=== PATIENT | female | born 1980 | race Caucasian/White ===

== ENCOUNTER → 2016-10-27 | Outpatient (CLI) | payer MEDICARE, OTHER ==
--- NOTE | 2016-10-27 12:29 | RAD ---
PROCEDURE MR of the right knee HISTORY Chronic pain and the weakness. TECHNIQUE Standard noncontrast images are obtained. COMPARISON None FINDINGS No evidence of medial meniscal tear or lateral meniscal tear. Note there is motion degradation on some of the sequences. Anterior and posterior cruciate ligaments are intact. Medial collateral ligament is intact. Iliotibial band, fibular collateral ligament, and biceps femoris tendon are intact. The extensor mechanism appears intact. Small joint effusion. Mild chondromalacia and degenerative arthrosis at the medial joint compartment and at the lateral joint compartment. Moderate to severe patellofemoral joint chondromalacia. There is a bone lesion within the tibial metaphysis with serpiginous margins, compatible with a focus of osteonecrosis, measures 5.5 cm longitudinal. No acute edema. No evidence of acute macro fracture. No significant Rock cyst or acute soft tissue edema. IMPRESSION 1. Primary osteoarthritis, greatest at the patellofemoral joint. 2. Bone lesion within the proximal tibia, most compatible with a zone of osteonecrosis. Electronically signed by: Brennen Romero MD (Oct 27, 2016 12:27:39)
== END | disposition home or self-care (01) ==
LOC: MRI 07:22
PROVIDERS: ATTEND Orthopaedic Surgery
DX: M17.11 Unilateral primary osteoarthritis, right knee (principal)
CPT/HCPCS: 73721

== ENCOUNTER 2017-02-02 18:29 | Emergency (ER) | payer MEDICARE, OTHER ==
[~2017-02-02] VITALS: Ht 176.5 cm; Wt 96.6 kg
--- NOTE | 2017-02-02 18:58 | PHYS DOC ---
Past Medical History Past Medical History: Asthma, Hypertension, Seizure Past Surgical History: No Surgical History Alcohol Use: None Drug Use: None Adult General Chief Complaint Chief Complaint: ABDOMINAL PAIN HPI HPI Patient is a 36 year old female presenting to the emergency department for evaluation of diffuse abdominal pain nausea and vomiting that started 2-3 days ago and has persisted. She says that the pain is all over and she denies any fevers chills dysuria hematuria vaginal burning vaginal discharge diarrhea or constipation with her symptoms. She denies any prior abdominal surgeries. Review of Systems Review of Systems Constitutional: Denies fever or chills [] Eyes: Denies change in visual acuity, redness, or eye pain [] HENT: Denies nasal congestion or sore throat [] Respiratory: Denies cough or shortness of breath [] Cardiovascular: No additional information not addressed in HPI [] GI: + abdominal pain, nausea, vomiting. No bloody stools or diarrhea [] : Denies dysuria or hematuria [] Musculoskeletal: Denies back pain or joint pain [] Integument: Denies rash or skin lesions [] Neurologic: Denies headache, focal weakness or sensory changes [] Current Medications Current Medications Current Medications Medications (Trade) Dose Ordered Sig/Bernice Start Time Stop Time Status Last Admin Dose Admin Ceftriaxone Sodium 1 gm/ Sodium Chloride 50 ml @ 100 mls/hr Q24H 02/03/17 20:00 02/03/17 20:00 DC Ceftriaxone Sodium 50 ml @ 100 mls/hr 1X ONCE 02/02/17 19:45 02/02/17 20:14 DC 02/02/17 19:58 100 MLS/HR Info (Do NOT chart on this entry -- for MONITORING) 1 each PRN DAILY PRN 02/02/17 19:15 02/02/17 21:10 DC Iohexol (Omnipaque 300 Mg/ml) 75 ml 1X ONCE 02/02/17 19:15 02/02/17 19:16 DC Morphine Sulfate 5 mg 1X ONCE 02/02/17 19:00 02/02/17 19:04 DC 02/02/17 19:08 5 MG Ondansetron HCl (Zofran) 8 mg 1X ONCE 02/02/17 19:00 02/02/17 19:04 DC 02/02/17 19:08 8 MG Sodium Chloride 1,000 ml @ 1,000 mls/hr 1X ONCE 02/02/17 19:00 02/02/17 19:59 DC 02/02/17 19:08 1,000 MLS/HR Allergies Allergies Allergies Coded Allergies Type Severity Reaction Last Updated Verified Penicillins Allergy Intermediate 02/02/17 Yes Physical Exam Physical Exam Constitutional: Well developed, well nourished, no acute distress, non-toxic appearance. [] HENT: Normocephalic, atraumatic, bilateral external ears normal, oropharynx moist, no oral exudates, nose normal. [] Eyes: PERRLA, EOMI, conjunctiva normal, no discharge. [] Neck: Normal range of motion, no tenderness, supple, no stridor. [] Cardiovascular:Heart rate regular rhythm, no murmur [] Lungs & Thorax: Bilateral breath sounds clear to auscultation [] Abdomen: Bowel sounds normal, soft, diffuse abdominal tenderness, no rebound or guarding, no masses, no pulsatile masses. [] Skin: Warm, dry, no erythema, no rash. [] Back: No tenderness, no CVA tenderness. [] Extremities: No tenderness, no cyanosis, no clubbing, ROM intact, no edema. [] Neurologic: Alert and oriented X 3, normal motor function, normal sensory function, no focal deficits noted. [] Current Patient Data Vital Signs Vital Signs Date Time Temp Pulse Resp B/P (MAP) Pulse Ox O2 Delivery O2 Flow Rate FiO2 02/02/17 20:00 86 16 156/85 (108) 96 Room Air 02/02/17 18:35 99.0 99.0 Lab Values Laboratory Tests Test 02/02/17 18:03 02/02/17 18:50 02/02/17 19:04 POC Urine HCG, Qualitative Hcg negative (Negative) Urine Collection Type Unknown Urine Color Yellow Urine Clarity Cloudy Urine pH 8.0 Urine Specific [place] 1.020 Urine Protein Negative mg/dL (NEG-TRACE) Urine Glucose (UA) Negative mg/dL (NEG) Urine Ketones (Stick) Trace mg/dL (NEG) Urine Blood Large (NEG) Urine Nitrite Negative (NEG) Urine Bilirubin Negative (NEG) Urine Urobilinogen Dipstick 1.0 mg/dL (0.2 mg/dL) Urine Leukocyte Esterase Large (NEG) Urine RBC Occ /HPF (0-2) Urine WBC Tntc /HPF (0-4) Urine Squamous Epithelial Cells Mod /LPF Urine Bacteria Many /HPF (0-FEW) Urine Mucus Mod /LPF Urine Opiates Screen Neg (NEG) Urine Methadone Screen Neg (NEG) Urine Barbiturates Pos (NEG) Urine Phencyclidine Screen Neg (NEG) Urine Amphetamine/Methamphetamine Neg (NEG) Urine Benzodiazepines Screen Neg (NEG) Urine Cocaine Screen Neg (NEG) Urine Cannabinoids Screen Neg (NEG) Urine Ethyl Alcohol Neg (NEG) White Blood Count 7.4 x10^3/uL (4.0-11.0) Red Blood Count 4.35 x10^6/uL (3.50-5.40) Hemoglobin 14.0 g/dL (12.0-15.5) Hematocrit 40.5 % (36.0-47.0) Mean Corpuscular Volume 93 fL (79-100) Mean Corpuscular Hemoglobin 32 pg (25-35) Mean Corpuscular Hemoglobin Concent 35 g/dL (31-37) Red Cell Distribution Width 12.9 % (11.5-14.5) Platelet Count 234 x10^3/uL (140-400) Neutrophils (%) (Auto) 55 % (31-73) Lymphocytes (%) (Auto) 34 % (24-48) Monocytes (%) (Auto) 8 % (0-9) Eosinophils (%) (Auto) 2 % (0-3) Basophils (%) (Auto) 1 % (0-3) Neutrophils # (Auto) 4.1 x10^3uL (1.8-7.7) Lymphocytes # (Auto) 2.5 x10^3/uL (1.0-4.8) Monocytes # (Auto) 0.6 x10^3/uL (0.0-1.1) Eosinophils # (Auto) 0.1 x10^3/uL (0.0-0.7) Basophils # (Auto) 0.1 x10^3/uL (0.0-0.2) Sodium Level 142 mmol/L (136-145) Potassium Level 3.8 mmol/L (3.5-5.1) Chloride Level 107 mmol/L (98-107) Carbon Dioxide Level 24 mmol/L (21-32) Anion Gap 11 (6-14) Blood Urea Nitrogen 12 mg/dL (7-20) Creatinine 0.8 mg/dL (0.6-1.0) Estimated GFR (Cockcroft-Gault) 80.7 BUN/Creatinine Ratio 15 (6-20) Glucose Level 91 mg/dL (70-99) Calcium Level 8.6 mg/dL (8.5-10.1) Magnesium Level 2.1 mg/dL (1.8-2.4) Total Bilirubin 0.2 mg/dL (0.2-1.0) Aspartate Amino Transferase (AST) 13 U/L (15-37) L Alanine Aminotransferase (ALT) 21 U/L (14-59) Alkaline Phosphatase 83 U/L (46-116) Creatine Kinase 78 U/L (26-192) Total Protein 7.2 g/dL (6.4-8.2) Albumin 3.9 g/dL (3.4-5.0) Albumin/Globulin Ratio 1.2 (1.0-1.7) Lipase 99 U/L (73-393) Ethyl Alcohol Level < 10 mg/dL (0-10) Laboratory Tests 02/02/17 19:04 Laboratory Tests 02/02/17 19:04 EKG EKG [] Radiology/Procedures Radiology/Procedures CT Abdomen and Pelvis With Intravenous Contrast: History: Severe right lower quadrant pain with nausea and vomiting for 2 to 3 days. Comparison: None. Technique: After administration of intravenous contrast administration, 75 mL Omnipaque-300, CT of the abdomen and pelvis was performed. Exposure: One or more of the following individualized dose reduction techniques were utilized for this examination: 1. Automated exposure control 2. Adjustment of the mA and/or kV according to patient size 3. Use of iterative reconstruction technique Findings: Evaluation of enteric structures may be limited by lack of oral contrast. Liver, spleen, pancreas, gallbladder, and bilateral adrenal glands are unremarkable. Bilateral kidneys enhance symmetrically. No bowel obstruction or inflammation is seen. Appendix is without evidence of inflammation. Intrauterine device is present. Adnexa have unremarkable appearance. Urinary bladder is unremarkable. No free air or significant free fluid is seen in the abdomen or pelvis. Impression: 1. No acute abnormality identified in the abdomen or pelvis. Electronically signed by: Brennen Patel MD (02/02/2017 7:51 PM) [facility] DICTATED and SIGNED BY: BRENNEN PATEL MD DATE: 02/02/171946 Course & Med Decision Making Course & Med Decision Making Patient with diffuse nonspecific abdominal pain that is likely enteritis given her nausea vomiting along with it. Her workup is very unremarkable except for possible urinary tract infection. Her pain and nausea is gone and she is able to tolerate fluids by mouth with no difficulty so she'll be discharged with supportive treatment in addition to Cipro for her UTI and told to follow with primary care provider in 2-3 days and come back to the ER sooner with any worsening pain fevers vomiting or other general concerns. She verbalized understanding of the above plan. Dragon Disclaimer Dragon Disclaimer This electronic medical record was generated, in whole or in part, using a voice recognition dictation system. Departure Departure Impression: Primary Impression: UTI (urinary tract infection) Additional Impressions: Abdominal pain Nausea & vomiting Disposition: 01 HOME, SELF-CARE Condition: GOOD Referrals: NO PCP (PCP) Patient Instructions: Urinary Tract Infection Scripts Ciprofloxacin Hcl (CIPRO) 250 Mg Tablet 1 TAB PO BID, #6 TAB Prov: ELIZABETH LARA DO 02/02/17 Ondansetron (ZOFRAN ODT) 4 Mg Tab.rapdis 4 MG PO BID Y for NAUSEA/VOMITING, #10 TAB Prov: ELIZABETH LARA DO 02/02/17 Hydrocodone/Apap 5-325 (NORCO 5-325 TABLET) 1 Each Tablet 1 TAB PO PRN Q6HRS Y for PAIN, #10 TAB 0 Refills Prov: ELIZABETH LARA DO 02/02/17 Problem Qualifiers ELIZABETH LARA DO Feb 02, 2017 18:58
[2017-02-02] MEDS ORDERED: IV NORMAL SALINE 1000ML BAG 1,000 ML IV ONE (19:00)
[2017-02-02] MEDS ORDERED: ONDANSETRON PF 4 MG/2 ML VIAL. IV ONE (19:00)
[2017-02-02] MEDS ORDERED: MORPHINE SULFATE 10 MG/ML VIAL. IV ONE (19:00)
[2017-02-02 19:06] LABS: BILIRUBIN,URINE NEGATIVE (NEG); GLUCOSE,URINE NEGATIVE (NEG); NITRITE,URINE NEGATIVE (NEG); PROTEIN,URINE NEGATIVE (NEG-TRACE)
[2017-02-02 19:12] LABS: BASO # 0.1 x10^3/uL (0.0-0.2); BASO % 1 % (0-3); EOS % 2 % (0-3); HEMATOCRIT 40.5 % (36.0-47.0); LYMPH # 2.5 x10^3/uL (1.0-4.8); LYMPH % 34 % (24-48); MEAN CORPUSCULAR HEMOGLOBIN 32 pg (25-35); MEAN CORPUSCULAR HGB CONC 35 g/dL (31-37); MEAN CORPUSCULAR VOLUME 93 fL (79-100); MONO % 8 % (0-9); NEUT % 55 % (31-73); PLATELET COUNT 234 x10^3/uL (140-400); RED BLOOD COUNT 4.35 x10^6/uL (3.50-5.40); RED CELL DISTRIBUTION WIDTH 12.9 % (11.5-14.5); WHITE BLOOD COUNT 7.4 x10^3/uL (4.0-11.0)
[2017-02-02 19:13] LABS: BACTERIA,URINE MANY /HPF (0-FEW); BARBITURATES POS (NEG); BENZODIAZEPINES NEG (NEG); CANNABINOIDS NEG (NEG); COCAINE NEG (NEG); METHADONE NEG (NEG); OPIATES NEG (NEG); PHENCYCLIDINE NEG (NEG); RBC,URINE OCC /HPF (0-2); SQUAMOUS EPITHELIAL CELL,UR MOD /LPF; WBC,URINE TNTC /HPF (0-4)
[2017-02-02] MEDS ORDERED: CONTRAST GIVEN MC PRN (19:15)
[2017-02-02] MEDS ORDERED: IOHEXOL 300 MG/ML 75 ML VIAL IV ONE (19:15)
[2017-02-02 19:24] LABS: CALCIUM 8.6 mg/dL (8.5-10.1); CREATININE 0.8 mg/dL (0.6-1.0); GFR 80.7; POTASSIUM 3.8 mmol/L (3.5-5.1)
[2017-02-02 19:30] LABS: ALBUMIN 3.9 g/dL (3.4-5.0); ALBUMIN/GLOBULIN RATIO 1.2 (1.0-1.7); MAGNESIUM 2.1 mg/dL (1.8-2.4); TOTAL BILIRUBIN 0.2 mg/dL (0.2-1.0); TOTAL PROTEIN 7.2 g/dL (6.4-8.2)
--- NOTE | 2017-02-02 19:54 | RAD ---
CT Abdomen and Pelvis With Intravenous Contrast: History: Severe right lower quadrant pain with nausea and vomiting for 2 to 3 days. Comparison: None. Technique: After administration of intravenous contrast administration, 75 mL Omnipaque-300, CT of the abdomen and pelvis was performed. Exposure: One or more of the following individualized dose reduction techniques were utilized for this examination: 1. Automated exposure control 2. Adjustment of the mA and/or kV according to patient size 3. Use of iterative reconstruction technique Findings: Evaluation of enteric structures may be limited by lack of oral contrast. Liver, spleen, pancreas, gallbladder, and bilateral adrenal glands are unremarkable. Bilateral kidneys enhance symmetrically. No bowel obstruction or inflammation is seen. Appendix is without evidence of inflammation. Intrauterine device is present. Adnexa have unremarkable appearance. Urinary bladder is unremarkable. No free air or significant free fluid is seen in the abdomen or pelvis. Impression: 1. No acute abnormality identified in the abdomen or pelvis. Electronically signed by: Brennen Patel MD (02/02/2017 7:51 PM) [facility]
[2017-02-02 20:00] VITALS: BP 156/85
[2017-02-02] MEDS ORDERED: CIPR250T30 PO (21:00)
[2017-02-02] MEDS ORDERED: ONDA4TAB10 PO (21:00)
[2017-02-02] MEDS ORDERED: HYDR-971 PO (21:00)
== END 2017-02-02 21:00 | disposition home or self-care (01) ==
LOC: ER 18:29
DX: N39.0 Urinary tract infection, site not specified (principal); R11.2 Nausea with vomiting, unspecified; I10 Essential (primary) hypertension; J45.909 Unspecified asthma, uncomplicated; Z88.0 Allergy status to penicillin
CPT/HCPCS: 36415; 74177; 80053; 80305; 80320; 81001; 81025; 82550; 83690; 83735; 85027; 87086; 96361; 96365; 96375; 99285; C1887; J0690; J2270; J2405; J7030; G0480; G0481

== ENCOUNTER 2017-06-24 12:08 | Emergency (ER) | payer MEDICARE, OTHER ==
[~2017-06-24] VITALS: Ht 165.1 cm; Wt 89.4 kg
[~2017-06-24 12:08] MED LIST: CIPR250T30 PO; HYDR-971 PO; ONDA4TAB10 PO
[2017-06-24 13:07] LABS: NEGATIVE OBC STREP NEG; POSITIVE OBC STREP POS
--- NOTE | 2017-06-24 13:33 | PHYS DOC ---
Past Medical History Past Medical History: Asthma, Hypertension, Seizure Additional Past Medical Histor: EPILEPSY Past Surgical History: No Surgical History Additional Information: 1/2 PACK/DAY Alcohol Use: None Drug Use: None Adult General Chief Complaint Chief Complaint: SORE THROAT [facility] HPI Patient is a 36 year old female who presents with a sore throat for 3 weeks. Patient denies any fever coughing or congestion. She is a smoker. Review of Systems Review of Systems Constitutional: Denies fever or chills [] Eyes: Denies change in visual acuity, redness, or eye pain [] HENT: sore throat denies denies any congestion Respiratory: Denies cough or shortness of breath [] Cardiovascular: No additional information not addressed in HPI [] GI: Denies abdominal pain, nausea, vomiting, bloody stools or diarrhea [] : Denies dysuria or hematuria [] Musculoskeletal: Denies back pain or joint pain [] Integument: Denies rash or skin lesions [] Neurologic: Denies headache, focal weakness or sensory changes [] All other systems were reviewed and found to be within normal limits, except as documented in this note. Allergies Allergies Allergies Coded Allergies Type Severity Reaction Last Updated Verified Penicillins Allergy Intermediate 02/02/17 Yes Physical Exam Physical Exam Constitutional: Well developed, well nourished, no acute distress, non-toxic appearance. [] HENT: Normocephalic, atraumatic, bilateral external ears normal, oropharynx moist, no oral exudates, nose normal. [] Eyes: PERRLA, EOMI, conjunctiva normal, no discharge. [] Neck: Normal range of motion, no tenderness, supple, no stridor. [] Cardiovascular:Heart rate regular rhythm, no murmur [] Lungs & Thorax: Bilateral breath sounds clear to auscultation [] Abdomen: Bowel sounds normal, soft, no tenderness, no masses, no pulsatile masses. [] Skin: Warm, dry, no erythema, no rash. [] Back: No tenderness, no CVA tenderness. [] Extremities: No tenderness, no cyanosis, no clubbing, ROM intact, no edema. [] Neurologic: Alert and oriented X 3, normal motor function, normal sensory function, no focal deficits noted. [] Psychologic: Affect normal, judgement normal, mood normal. [] Current Patient Data Vital Signs Vital Signs Date Time Temp Pulse Resp B/P (MAP) Pulse Ox O2 Delivery O2 Flow Rate FiO2 06/24/17 12:47 98.7 93 20 98 Room Air 98.7 Lab Values Laboratory Tests Test 06/24/17 12:45 Group A Streptococcus Rapid Negative (NEGATIVE) EKG EKG [] Radiology/Procedures Radiology/Procedures [] Course & Med Decision Making Course & Med Decision Making Pertinent Labs and Imaging studies reviewed. (See chart for details) This is a well-appearing 36-year-old female patient presenting to the ED today with sore throat for 3 weeks. Negative rapid strep. She is a smoker she was encouraged to consider smoking cessation. We discharged her with prednisone and encourage her to use salt water gargles as well as ibuprofen [id number]. Follow-up with her PCP in 1-2 weeks. Dragon Disclaimer Dragon Disclaimer This electronic medical record was generated, in whole or in part, using a voice recognition dictation system. Departure Departure Impression: Primary Impression: Viral pharyngitis Additional Impression: Smoking addiction Disposition: 01 HOME, SELF-CARE Condition: STABLE Referrals: UNKNOWN PCP NAME (PCP) follow up with your doctor in one week Patient Instructions: Smoking Cessation, Viral Pharyngitis Additional Instructions: You were seen with a sore throat. Your strep test is negative. Your symptoms could be viral or seasonal allergies. Consider smoking cessation. Take the prescribed medicines as ordered. Follow-up with your doctor in 1-2 weeks. Come back to the ED if symptoms worsen. Scripts Prednisone (PREDNISONE) 50 Mg Tablet 1 TAB PO DAILY, #5 TAB Prov: RACHAEL RUFFIN APRN 06/24/17 Problem Qualifiers RACHAEL RUFFIN APRN Jun 24, 2017 13:33
[2017-06-24] MEDS ORDERED: PRED50TA PO (13:41)
== END 2017-06-24 13:51 | disposition home or self-care (01) ==
LOC: ER 12:08
DX: J02.8 Acute pharyngitis due to other specified organisms (principal); B97.89 Other viral agents as the cause of diseases classified elsewhere; F17.200 Nicotine dependence, unspecified, uncomplicated; J45.909 Unspecified asthma, uncomplicated; I10 Essential (primary) hypertension; G40.909 Epilepsy, unspecified, not intractable, without status epilepticus; Z88.0 Allergy status to penicillin
CPT/HCPCS: 87070; 87880; 99283

== ENCOUNTER 2017-06-30 15:20 | Emergency (ER) | payer OTHER ==
[~2017-06-30] VITALS: Ht 175.3 cm; Wt 90.7 kg
[~2017-06-30 15:20] MED LIST changes: +PRED50TA PO
[2017-06-30 15:28] VITALS: BP 172/92
[2017-06-30] MEDS ORDERED: IPRATRPIUM/ALBUTEROL 0.5/2.5MG 3 ML NEBU. NEB ONE (15:30)
[2017-06-30] MEDS ORDERED: predniSONE 20 MG TABLET PO ONE (15:30)
[2017-06-30] MEDS ORDERED: BENZONATATE 100 MG CAPSULE. PO ONE (15:30)
--- NOTE | 2017-06-30 15:33 | PHYS DOC ---
Past Medical History Past Medical History: Asthma, Hypertension, Other Additional Past Medical Histor: EPILEPSY Past Surgical History: Hysterectomy Alcohol Use: None Drug Use: None Adult General Chief Complaint Chief Complaint: COUGH HPI HPI Patient is a 36 year old female presents the ED complaining of cough 1 week. Patient was seen in the emergency department 5 days ago and given prednisone. Patient has a history of asthma. States some improvement but still coughing a lot. States NyQuil [id number] is not helping. Sick contacts with similar symptoms. Associated symptoms include sore throat. Denies fever, chest pain, dizziness, weakness, abdominal pain, nausea/vomiting, rash or conjunctivitis. Review of Systems Review of Systems Constitutional: Denies fever or chills [] Eyes: Denies change in visual acuity, redness, or eye pain [] HENT: Complains of sore throat. Denies nasal congestion. [] Respiratory: Complains of cough. Denies shortness of breath [] Cardiovascular: No additional information not addressed in HPI [] GI: Denies abdominal pain, nausea, vomiting, bloody stools or diarrhea [] : Denies dysuria or hematuria [] Musculoskeletal: Denies back pain or joint pain [] Integument: Denies rash or skin lesions [] Neurologic: Denies headache, focal weakness or sensory changes [] Endocrine: Denies polyuria or polydipsia [] All other systems were reviewed and found to be within normal limits, except as documented in this note. Current Medications Current Medications Current Medications Medications (Trade) Dose Ordered Sig/Bernice Start Time Stop Time Status Last Admin Dose Admin Albuterol/ Ipratropium (Duoneb) 3 ml 1X ONCE 06/30/17 15:30 06/30/17 15:34 DC 06/30/17 15:52 3 ML Benzonatate (Tessalon Perle) 100 mg 1X ONCE 06/30/17 15:30 06/30/17 15:34 DC 06/30/17 15:37 100 MG Prednisone (Prednisone) 60 mg 1X ONCE 06/30/17 15:30 06/30/17 15:34 DC 06/30/17 15:37 60 MG Allergies Allergies Allergies Coded Allergies Type Severity Reaction Last Updated Verified Penicillins Allergy Intermediate 02/02/17 Yes Physical Exam Physical Exam Constitutional: Well developed, well nourished, no acute distress, non-toxic appearance. [] HENT: Normocephalic, atraumatic, bilateral external ears normal, oropharynx moist, no oral exudates, nose normal. [] Eyes: PERRLA, EOMI, conjunctiva normal, no discharge. [] Neck: Normal range of motion, no tenderness, supple, no stridor. [] Cardiovascular:Heart rate regular rhythm, no murmur [] Lungs & Thorax: Bilateral breath sounds. MILD WHEEZING BILATERALLY. [] Abdomen: Bowel sounds normal, soft, no tenderness, no masses, no pulsatile masses. [] Skin: Warm, dry, no erythema, no rash. [] Back: No tenderness, no CVA tenderness. [] Extremities: No tenderness, no cyanosis, no clubbing, ROM intact, no edema. [] Neurologic: Alert and oriented X 3, normal motor function, normal sensory function, no focal deficits noted. [] Psychologic: Affect normal, judgement normal, mood normal. [] Current Patient Data Vital Signs Vital Signs Date Time Temp Pulse Resp B/P (MAP) Pulse Ox O2 Delivery O2 Flow Rate FiO2 06/30/17 15:53 99 Room Air 06/30/17 15:28 97.7 95 20 97.7 EKG EKG [] Radiology/Procedures Radiology/Procedures [] Course & Med Decision Making Course & Med Decision Making Pertinent Labs and Imaging studies reviewed. (See chart for details) []Patient's wheezing improved after breathing treatment. States she is feeling much better. Tessalon Perles help with cough. Will discharge with azithromycin, prednisone, Tessalon Perles and Pro Air inhaler. Discussed follow-up with PCP later this week. Provided contact information/education. Discussed reasons to return to the ED. Patient understands and agrees with plan. Dragon Disclaimer Dragon Disclaimer This electronic medical record was generated, in whole or in part, using a voice recognition dictation system. Departure Departure Impression: Primary Impression: Acute bronchitis Disposition: 01 HOME, SELF-CARE Condition: IMPROVED Referrals: UNKNOWN PCP NAME (PCP) GIOVANNI HALL MD Patient Instructions: Acute Bronchitis Scripts Benzonatate (TESSALON PERLE) 100 Mg Capsule 1 CAP PO TID, #21 CAP Prov: SOM HEMPHILL 06/30/17 Albuterol Sulfate (PROAIR HFA INHALER) 8.5 Gm Hfa.aer.ad 1 PUFF INH PRN Q6HRS Y for SHORTNESS OF BREATH, #1 INHALER 0 Refills Prov: SOM HEMPHILL 06/30/17 Methylprednisolone (MEDROL) 4 Mg Tab.ds.pk 1 PKG PO UD, #1 PKG Prov: SOM HEMPHILL 06/30/17 Azithromycin (AZITHROMYCIN TABLET) 250 Mg Tablet 1 PKG PO UD, #6 TAB Prov: SOM HEMPHILL 06/30/17 SOM HEMPHILL Jun 30, 2017 15:33
[2017-06-30] MEDS ORDERED: AZIT250T6 PO (16:12)
[2017-06-30] MEDS ORDERED: METH4TAB2 PO (16:12)
[2017-06-30] MEDS ORDERED: PROAIR HFA8.5 GM INH (16:12)
[2017-06-30] MEDS ORDERED: BENZ100C PO (16:12)
== END 2017-06-30 16:16 | disposition home or self-care (01) ==
LOC: ER 15:20
DX: J20.9 Acute bronchitis, unspecified (principal); I10 Essential (primary) hypertension; J45.909 Unspecified asthma, uncomplicated; G40.909 Epilepsy, unspecified, not intractable, without status epilepticus; Z88.0 Allergy status to penicillin
CPT/HCPCS: 94250; 94640; 94760; 99283; J7512; J7620

== ENCOUNTER 2018-04-14 20:16 | Emergency (ER) | payer OTHER ==
[~2018-04-14] VITALS: Ht 175.3 cm; Wt 90.7 kg
[~2018-04-14 20:16] MED LIST changes: +AZIT250T6 PO; +BENZ100C PO; +METH4TAB2 PO; +PROAIR HFA8.5 GM INH
[2018-04-14] MEDS ORDERED: ONDANSETRON PF 4 MG/2 ML VIAL. IV ONE (21:00)
[2018-04-14] MEDS ORDERED: MORPHINE SULFATE 4 MG/ML VIAL. IV ONE (21:00)
[2018-04-14] MEDS ORDERED: IV NORMAL SALINE 1000ML BAG 1,000 ML IV ONE (21:00)
--- NOTE | 2018-04-14 21:00 | PHYS DOC ---
Past Medical History Past Medical History: Asthma, Hypertension, Other Additional Past Medical Histor: EPILEPSY Past Surgical History: Hysterectomy Alcohol Use: None Drug Use: None Adult General Chief Complaint Chief Complaint: ABDOMINAL PAIN HPI HPI Patient is a 37 year old F who presents with lower abdominal pain, nausea and vomiting since this morning. She states she has been sick for a few days with congestion, R ear pain and sore throat, but the abdominal pain and vomiting started today. She has felt chilled at home. She denies diarrhea or constipation. She denies vaginal symptoms. She has had a prior hysterectomy. Review of Systems Review of Systems Constitutional: Reports chills HENT: Reports nasal drainage, R ear pain and sore throat. Hoarse voice. Respiratory: Denies cough or shortness of breath Cardiovascular: Denies chest pain. GI: Denies constipation or diarrhea. Reports abdominal pain, nausea and vomiting. : Denies dysuria or hematuria Musculoskeletal: Denies back pain or joint pain Integument: Denies rash or skin lesions Neurologic: Denies headache, focal weakness or sensory changes Endocrine: Denies polyuria or polydipsia All other systems were reviewed and found to be within normal limits, except as documented in this note. Current Medications Current Medications Current Medications Medications (Trade) Dose Ordered Sig/Bernice Start Time Stop Time Status Last Admin Dose Admin Ceftriaxone Sodium 50 ml @ 100 mls/hr 1X ONCE 04/14/18 22:15 04/14/18 22:44 DC Info (CONTRAST GIVEN -- Rx MONITORING) 1 each PRN DAILY PRN 04/14/18 21:15 04/16/18 21:14 Iohexol (Omnipaque 300 Mg/ml) 75 ml 1X ONCE 04/14/18 21:15 04/14/18 21:16 DC Morphine Sulfate (Morphine Sulfate) 4 mg 1X ONCE 04/14/18 21:00 04/14/18 21:01 DC 04/14/18 21:18 4 MG Ondansetron HCl (Zofran) 4 mg 1X ONCE 04/14/18 21:00 04/14/18 21:01 DC 04/14/18 21:17 4 MG Sodium Chloride 1,000 ml @ 0 mls/hr 1X ONCE 04/14/18 21:00 04/14/18 21:01 DC 04/14/18 21:17 999 MLS/HR Allergies Allergies Allergies Coded Allergies Type Severity Reaction Last Updated Verified Penicillins Allergy Intermediate 02/02/17 Yes Physical Exam Physical Exam Constitutional: Well developed, well nourished, no acute distress. Appears uncomfortable. HENT: Normocephalic, atraumatic. Clear nasal drainage, R otitis media with erythematous TM and inflamed EAC. Patent. Neck: Normal range of motion, no tenderness, supple, no stridor. Cardiovascular:Heart rate regular rhythm, no murmur Lungs & Thorax: Bilateral breath sounds clear to auscultation. Abdomen: Bowel sounds normal, soft, tender to RLQ with rebound. Skin: Warm, dry, no erythema, no rash. Back: No tenderness, no CVA tenderness. Extremities: No tenderness, no cyanosis, no clubbing, ROM intact, no edema. Neurologic: Alert and oriented X 3, normal motor function, normal sensory function, no focal deficits noted. Psychologic: Affect normal, judgement normal, mood normal. Current Patient Data Vital Signs Vital Signs Date Time Temp Pulse Resp B/P (MAP) Pulse Ox O2 Delivery O2 Flow Rate FiO2 04/14/18 21:18 18 98 04/14/18 21:03 97.4 80 128/76 (93) Room Air 97.4 Lab Values Laboratory Tests Test 04/14/18 20:45 04/14/18 21:19 White Blood Count 9.3 x10^3/uL (4.0-11.0) Red Blood Count 4.19 x10^6/uL (3.50-5.40) Hemoglobin 14.1 g/dL (12.0-15.5) Hematocrit 40.2 % (36.0-47.0) Mean Corpuscular Volume 96 fL (79-100) Mean Corpuscular Hemoglobin 34 pg (25-35) Mean Corpuscular Hemoglobin Concent 35 g/dL (31-37) Red Cell Distribution Width 12.9 % (11.5-14.5) Platelet Count 231 x10^3/uL (140-400) Neutrophils (%) (Auto) 41 % (31-73) Lymphocytes (%) (Auto) 48 % (24-48) Monocytes (%) (Auto) 8 % (0-9) Eosinophils (%) (Auto) 2 % (0-3) Basophils (%) (Auto) 1 % (0-3) Neutrophils # (Auto) 3.8 x10^3uL (1.8-7.7) Lymphocytes # (Auto) 4.4 x10^3/uL (1.0-4.8) Monocytes # (Auto) 0.8 x10^3/uL (0.0-1.1) Eosinophils # (Auto) 0.2 x10^3/uL (0.0-0.7) Basophils # (Auto) 0.1 x10^3/uL (0.0-0.2) Urine Collection Type Void Urine Color Yellow Urine Clarity Clear Urine pH 6.0 Urine Specific [place] 1.020 Urine Protein Negative mg/dL (NEG-TRACE) Urine Glucose (UA) Negative mg/dL (NEG) Urine Ketones (Stick) Negative mg/dL (NEG) Urine Blood Small (NEG) Urine Nitrite Negative (NEG) Urine Bilirubin Negative (NEG) Urine Urobilinogen Dipstick 1.0 mg/dL (0.2 mg/dL) Urine Leukocyte Esterase Negative (NEG) Urine RBC 3-5 /HPF (0-2) Urine WBC 11-20 /HPF (0-4) Urine Squamous Epithelial Cells Mod /LPF Urine Amorphous Sediment Present /HPF Urine Bacteria Moderate /HPF (0-FEW) Urine Mucus Mod /LPF Sodium Level 141 mmol/L (136-145) Potassium Level 3.9 mmol/L (3.5-5.1) Chloride Level 104 mmol/L (98-107) Carbon Dioxide Level 29 mmol/L (21-32) Anion Gap 8 (6-14) Blood Urea Nitrogen 15 mg/dL (7-20) Creatinine 0.9 mg/dL (0.6-1.0) Estimated GFR (Cockcroft-Gault) 70.1 BUN/Creatinine Ratio 17 (6-20) Glucose Level 101 mg/dL (70-99) H Calcium Level 9.4 mg/dL (8.5-10.1) Total Bilirubin 0.1 mg/dL (0.2-1.0) L Aspartate Amino Transferase (AST) 11 U/L (15-37) L Alanine Aminotransferase (ALT) 20 U/L (14-59) Alkaline Phosphatase 86 U/L (46-116) Total Protein 7.0 g/dL (6.4-8.2) Albumin 3.6 g/dL (3.4-5.0) Albumin/Globulin Ratio 1.1 (1.0-1.7) Lipase 153 U/L (73-393) Influenza Type A Antigen Negative (NEGATIVE) Influenza Type B Antigen Negative (NEGATIVE) Laboratory Tests 04/14/18 20:45 Laboratory Tests 04/14/18 20:45 EKG EKG [] Radiology/Procedures Radiology/Procedures CT shows constipation. Normal appendix. Course & Med Decision Making Course & Med Decision Making Pertinent Labs and Imaging studies reviewed. (See chart for details) Discussed antibiotic options with pt. She has otitis media and a UTI and I would like to give Rocephin here in ER. She reports hives with Penicillin but does not know if she has had cephalosporins. We will give Rocephin here in ER while she is being observed. Discussed constipation, UTI and otitis media and need for rest, fluids and bland diet. Pt to f/u with her PCP this next week and return if symptoms worsen at anytime. Nurse notified me that pt had not rcvd Rocephin at time of discharge so we changed it to Keflex 500mg PO x1 since pt was ready to leave to go home. Dragon Disclaimer Dragon Disclaimer This electronic medical record was generated, in whole or in part, using a voice recognition dictation system. Departure Departure Impression: Primary Impression: Otitis media Additional Impressions: Urinary tract infection Constipation Disposition: 01 HOME, SELF-CARE Condition: IMPROVED Referrals: UNKNOWN PCP NAME (PCP) Patient Instructions: Constipation, Adult, [id number], Otitis Media, Adult, Urinary Tract Infection Scripts Ondansetron Hcl (ZOFRAN) 4 Mg Tablet 1 TAB PO PRN Q6-8HRS, #5 TAB Prov: RALPH CABRALES 04/14/18 Polyethylene Glycol 3350 (MIRALAX) 17 Gm Powd.pack 1 PACKET PO DAILY, #30 PACKET 3 Refills Prov: RALPH CABRALES 04/14/18 Cephalexin (KEFLEX) 500 Mg Capsule 1 CAP PO TID, #21 CAP Prov: RALPH CABRALES 04/14/18 Problem Qualifiers RALPH CABRALES Apr 14, 2018 21:00
[2018-04-14 21:02] LABS: BASO # 0.1 x10^3/uL (0.0-0.2); BASO % 1 % (0-3); BILIRUBIN,URINE NEGATIVE (NEG); CLARITY,URINE CLEAR; COLOR,URINE YELLOW; EOS # 0.2 x10^3/uL (0.0-0.7); EOS % 2 % (0-3); HEMATOCRIT 40.2 % (36.0-47.0); HEMOGLOBIN 14.1 g/dL (12.0-15.5); LYMPH # 4.4 x10^3/uL (1.0-4.8); LYMPH % 48 % (24-48); MEAN CORPUSCULAR HEMOGLOBIN 34 pg (25-35); MEAN CORPUSCULAR HGB CONC 35 g/dL (31-37); MEAN CORPUSCULAR VOLUME 96 fL (79-100); MONO # 0.8 x10^3/uL (0.0-1.1); MONO % 8 % (0-9); NEUT # 3.8 x10^3uL (1.8-7.7); NEUT % 41 % (31-73); NITRITE,URINE NEGATIVE (NEG); PLATELET COUNT 231 x10^3/uL (140-400); PROTEIN,URINE NEGATIVE (NEG-TRACE); RED BLOOD COUNT 4.19 x10^6/uL (3.50-5.40); RED CELL DISTRIBUTION WIDTH 12.9 % (11.5-14.5); WHITE BLOOD COUNT 9.3 x10^3/uL (4.0-11.0)
[2018-04-14 21:08] LABS: CALCIUM 9.4 mg/dL (8.5-10.1); CREATININE 0.9 mg/dL (0.6-1.0); GFR 70.1; POTASSIUM 3.9 mmol/L (3.5-5.1)
[2018-04-14 21:11] LABS: AMORPHOUS SEDIMENT,UR PRESENT /HPF; BACTERIA,URINE MODERATE /HPF (0-FEW); SQUAMOUS EPITHELIAL CELL,UR MOD /LPF
[2018-04-14 21:13] LABS: ALBUMIN 3.6 g/dL (3.4-5.0); ALBUMIN/GLOBULIN RATIO 1.1 (1.0-1.7); TOTAL BILIRUBIN 0.1 mg/dL (0.2-1.0)
[2018-04-14] MEDS ORDERED: CONTRAST GIVEN. MC PRN (21:15)
[2018-04-14] MEDS ORDERED: IOHEXOL 300 MG/ML 100ML VIAL. IV ONE (21:15)
[2018-04-14 21:45] LABS: INFLUENZA A PATIENT NEGATIVE (NEGATIVE); INFLUENZA B PATIENT NEGATIVE (NEGATIVE)
--- NOTE | 2018-04-14 22:11 | RAD ---
CT SCAN OF THE ABDOMEN AND PELVIS WITH IV CONTRAST. History: Right lower quadrant abdominal pain with nausea vomiting for one day and hysterectomy Comparison: February 02, 2017. Procedure: Contiguous axial images of the abdomen and pelvis were performed after the administration of 75 cc of Omni 300 IV contrast and oral contrast. CT Abdomen with contrast: Findings: Liver: Unremarkable Spleen: Unremarkable Pancreas: Unremarkable Adrenal Glands: Unremarkable Kidneys: Unremarkable There is no mass or lymphadenopathy. There is no free air. There is no free fluid. Impression: No acute findings. End Impression CT Pelvis with Contrast: Findings: The urinary bladder appears normal. There is no free fluid. There is no lymphadenopathy. There is stool scattered the colon. The appendix is normal. Impression: Constipation. PQRS Compliance Statement: One or more of the following individualized dose reduction techniques were utilized for this examination: 1. Automated exposure control 2. Adjustment of the mA and/or kV according to patient size 3. Use of iterative reconstruction technique Electronically signed by: Yuan Cazares III, MD (04/14/2018 10:07 PM) [facility]
[2018-04-14] MEDS ORDERED: POLY17PO29 PO (22:26)
[2018-04-14] MEDS ORDERED: CEPH-264 PO (22:26)
[2018-04-14] MEDS ORDERED: ONDA4TAB7 PO (22:26)
[2018-04-14 22:45] VITALS: BP 124/95
[2018-04-14] MEDS ORDERED: CEPHALEXIN 250 MG CAPSULE. PO ONE (23:00)
== END 2018-04-14 23:14 | disposition home or self-care (01) ==
LOC: ER 20:16
DX: N39.0 Urinary tract infection, site not specified (principal); H66.91 Otitis media, unspecified, right ear; K59.00 Constipation, unspecified; I10 Essential (primary) hypertension; G40.909 Epilepsy, unspecified, not intractable, without status epilepticus; J45.909 Unspecified asthma, uncomplicated; Z90.710 Acquired absence of both cervix and uterus; Z88.0 Allergy status to penicillin
CPT/HCPCS: 36415; 74177; 80053; 81001; 83690; 85025; 87086; 87804; 96374; 96375; 99285; J2270; J2405; J7030; 96361

== ENCOUNTER 2018-06-17 20:10 | Emergency (ER) | payer OTHER ==
[~2018-06-17] VITALS: Ht 175.3 cm; Wt 90.7 kg
[~2018-06-17 20:10] MED LIST changes: +CEPH-264 PO; +HYDR-3164 PO; -HYDR-971 PO; +ONDA4TAB7 PO; +POLY17PO29 PO
[2018-06-17 20:30] VITALS: BP 163/77
[2018-06-17] MEDS ORDERED: KETOROLAC 30 MG/ML VIAL. IM ONE (21:00)
--- NOTE | 2018-06-17 21:06 | PHYS DOC ---
Past Medical History Past Medical History: Asthma, Hypertension, Other Additional Past Medical Histor: EPILEPSY Past Surgical History: Hysterectomy Additional Past Surgical Histo: LUMPECTOMY Alcohol Use: None Drug Use: None Adult General Chief Complaint Chief Complaint: COUGH HPI HPI Patient is a 37 year old female presents for evaluation of sore throat, nausea vomiting and diarrhea for 4 days. Denies fevers. Denies chest or abdominal pain. Review of Systems Review of Systems Constitutional: Denies fever or chills [] Eyes: Denies change in visual acuity, redness, or eye pain [] HENT: Reports sore throat [] Respiratory: Denies cough or shortness of breath [] Cardiovascular: No additional information not addressed in HPI [] GI: Reports, nausea, vomiting, diarrhea [] : Denies dysuria or hematuria [] Musculoskeletal: Denies back pain or joint pain [] Integument: Denies rash or skin lesions [] Neurologic: Denies headache, focal weakness or sensory changes [] Endocrine: Denies polyuria or polydipsia [] All other systems were reviewed and found to be within normal limits, except as documented in this note. Current Medications Current Medications Current Medications Medications (Trade) Dose Ordered Sig/Bernice Start Time Stop Time Status Last Admin Dose Admin Ibuprofen (Motrin) 800 mg 1X ONCE 06/17/18 21:30 06/17/18 21:30 DC Ketorolac Tromethamine (Toradol 30mg Vial) 30 mg 1X ONCE 06/17/18 21:00 06/17/18 21:01 DC 06/17/18 21:23 30 MG Ondansetron HCl (Zofran Odt) 4 mg 1X ONCE 06/17/18 21:30 06/17/18 21:31 DC 06/17/18 21:22 4 MG Allergies Allergies Allergies Coded Allergies Type Severity Reaction Last Updated Verified Penicillins Allergy Intermediate 02/02/17 Yes Physical Exam Physical Exam Constitutional: Well developed, well nourished, no acute distress, non-toxic appearance. [] HENT: Normocephalic, atraumatic, oropharynx moist, no oral exudates, nose normal. [] Eyes: PERRLA, EOMI, conjunctiva normal, no discharge. [] Neck: Normal range of motion, no tenderness, supple, no stridor. [] Cardiovascular:Heart rate regular rhythm, no murmur [] Lungs & Thorax: Bilateral breath sounds clear to auscultation [] Abdomen: Bowel sounds normal, soft, no tenderness, no masses, no pulsatile masses. [] Skin: Warm, dry, no erythema, no rash. [] Neurologic: Alert and oriented X 3, normal motor function, normal sensory function, no focal deficits noted. [] Psychologic: Affect normal, judgement normal, mood normal. [] Current Patient Data Vital Signs Vital Signs Date Time Temp Pulse Resp B/P (MAP) Pulse Ox O2 Delivery O2 Flow Rate FiO2 06/17/18 20:30 98.7 82 18 163/77 (105) 99 Room Air 98.7 Lab Values Laboratory Tests Test 06/17/18 20:48 06/17/18 21:04 06/17/18 21:29 Urine Collection Type Unknown Urine Color Yellow Urine Clarity Clear Urine pH 6.0 Urine Specific [place] 1.025 Urine Protein Negative mg/dL (NEG-TRACE) Urine Glucose (UA) Negative mg/dL (NEG) Urine Ketones (Stick) Negative mg/dL (NEG) Urine Blood Small (NEG) Urine Nitrite Negative (NEG) Urine Bilirubin Negative (NEG) Urine Urobilinogen Dipstick 1.0 mg/dL (0.2 mg/dL) Urine Leukocyte Esterase Negative (NEG) Urine RBC 1-2 /HPF (0-2) Urine WBC 1-4 /HPF (0-4) Urine Squamous Epithelial Cells Mod /LPF Urine Bacteria Few /HPF (0-FEW) Urine Mucus Mod /LPF POC Urine HCG, Qualitative Hcg negative (Negative) White Blood Count 8.8 x10^3/uL (4.0-11.0) Red Blood Count 4.43 x10^6/uL (3.50-5.40) Hemoglobin 14.8 g/dL (12.0-15.5) Hematocrit 42.7 % (36.0-47.0) Mean Corpuscular Volume 96 fL (79-100) Mean Corpuscular Hemoglobin 34 pg (25-35) Mean Corpuscular Hemoglobin Concent 35 g/dL (31-37) Red Cell Distribution Width 13.0 % (11.5-14.5) Platelet Count 257 x10^3/uL (140-400) Neutrophils (%) (Auto) 43 % (31-73) Lymphocytes (%) (Auto) 46 % (24-48) Monocytes (%) (Auto) 8 % (0-9) Eosinophils (%) (Auto) 3 % (0-3) Basophils (%) (Auto) 1 % (0-3) Neutrophils # (Auto) 3.8 x10^3uL (1.8-7.7) Lymphocytes # (Auto) 4.1 x10^3/uL (1.0-4.8) Monocytes # (Auto) 0.7 x10^3/uL (0.0-1.1) Eosinophils # (Auto) 0.2 x10^3/uL (0.0-0.7) Basophils # (Auto) 0.1 x10^3/uL (0.0-0.2) Sodium Level 141 mmol/L (136-145) Potassium Level 4.3 mmol/L (3.5-5.1) Chloride Level 105 mmol/L (98-107) Carbon Dioxide Level 26 mmol/L (21-32) Anion Gap 10 (6-14) Blood Urea Nitrogen 16 mg/dL (7-20) Creatinine 0.9 mg/dL (0.6-1.0) Estimated GFR (Cockcroft-Gault) 70.1 BUN/Creatinine Ratio 18 (6-20) Glucose Level 102 mg/dL (70-99) H Calcium Level 9.4 mg/dL (8.5-10.1) Total Bilirubin 0.1 mg/dL (0.2-1.0) L Aspartate Amino Transferase (AST) 14 U/L (15-37) L Alanine Aminotransferase (ALT) 24 U/L (14-59) Alkaline Phosphatase 95 U/L (46-116) Total Protein 7.3 g/dL (6.4-8.2) Albumin 3.5 g/dL (3.4-5.0) Albumin/Globulin Ratio 0.9 (1.0-1.7) L Lipase 139 U/L (73-393) Laboratory Tests 06/17/18 21:29 Laboratory Tests 06/17/18 21:29 EKG EKG [] Radiology/Procedures Radiology/Procedures [] Course & Med Decision Making Course & Med Decision Making Pertinent Labs and Imaging studies reviewed. (See chart for details) [Workup today the emergency room fails to reveal any acute pathology. Patient likely has viral gastroenteritis with vomiting and diarrhea, will provide a prescription for Zofran, recommend [id number] Imodium for the diarrhea. Strep rapid is negative today. Discussed findings with patient, she stable for discharge home, follow-up with primary care doctor in 2-3 days.] No episodes of emesis or diarrhea during the stay in emergency room. patient is asleep, no signs of distress, at time of discharge. Staff Physician Addendum: I was working in the ER during the course of this patient's visit. I was available for consultation as needed, but I was not directly involved in the care of this patient. Dragon Disclaimer Dragon Disclaimer This electronic medical record was generated, in whole or in part, using a voice recognition dictation system. Departure Departure Impression: Primary Impression: Gastroenteritis Additional Impression: Pharyngitis Disposition: 01 HOME, SELF-CARE Condition: STABLE Referrals: UNKNOWN PCP NAME (PCP) Patient Instructions: Viral Gastroenteritis, Viral Pharyngitis Scripts Ondansetron Hcl (ZOFRAN) 4 Mg Tablet 1 TAB PO Q6HRS, #12 TAB Prov: SUSAN BE APRN 06/17/18 Problem Qualifiers SUSAN BE APRN Jun 17, 2018 21:06 JALEEL APPIAH MD Jun 17, 2018 22:23
[2018-06-17 21:15] LABS: BILIRUBIN,URINE NEGATIVE (NEG); CLARITY,URINE CLEAR; COLOR,URINE YELLOW; NITRITE,URINE NEGATIVE (NEG); PROTEIN,URINE NEGATIVE (NEG-TRACE)
[2018-06-17 21:22] LABS: BACTERIA,URINE FEW /HPF (0-FEW); SQUAMOUS EPITHELIAL CELL,UR MOD /LPF
[2018-06-17] MEDS ORDERED: IBUPROFEN 400 MG TABLET. PO ONE (21:30)
[2018-06-17] MEDS ORDERED: ONDANSETRON ODT 4 MG TAB.RAPDIS. PO ONE (21:30)
[2018-06-17 21:37] LABS: BASO # 0.1 x10^3/uL (0.0-0.2); BASO % 1 % (0-3); EOS # 0.2 x10^3/uL (0.0-0.7); EOS % 3 % (0-3); HEMATOCRIT 42.7 % (36.0-47.0); HEMOGLOBIN 14.8 g/dL (12.0-15.5); LYMPH # 4.1 x10^3/uL (1.0-4.8); LYMPH % 46 % (24-48); MEAN CORPUSCULAR HEMOGLOBIN 34 pg (25-35); MEAN CORPUSCULAR HGB CONC 35 g/dL (31-37); MEAN CORPUSCULAR VOLUME 96 fL (79-100); MONO # 0.7 x10^3/uL (0.0-1.1); MONO % 8 % (0-9); NEUT # 3.8 x10^3uL (1.8-7.7); NEUT % 43 % (31-73); PLATELET COUNT 257 x10^3/uL (140-400); RED BLOOD COUNT 4.43 x10^6/uL (3.50-5.40); WHITE BLOOD COUNT 8.8 x10^3/uL (4.0-11.0)
[2018-06-17 21:44] LABS: CALCIUM 9.4 mg/dL (8.5-10.1); CREATININE 0.9 mg/dL (0.6-1.0); GFR 70.1; POTASSIUM 4.3 mmol/L (3.5-5.1)
[2018-06-17 21:48] LABS: ALBUMIN 3.5 g/dL (3.4-5.0); ALBUMIN/GLOBULIN RATIO 0.9 (1.0-1.7); TOTAL BILIRUBIN 0.1 mg/dL (0.2-1.0); TOTAL PROTEIN 7.3 g/dL (6.4-8.2)
[2018-06-17] MEDS ORDERED: ONDA4TAB7 PO (22:05)
== END 2018-06-17 22:05 | disposition home or self-care (01) ==
LOC: ER 20:10
DX: K52.9 Noninfective gastroenteritis and colitis, unspecified (principal); J02.9 Acute pharyngitis, unspecified; I10 Essential (primary) hypertension; J45.909 Unspecified asthma, uncomplicated; G40.909 Epilepsy, unspecified, not intractable, without status epilepticus; Z90.710 Acquired absence of both cervix and uterus; Z88.0 Allergy status to penicillin
CPT/HCPCS: 36415; 80053; 81001; 81025; 83690; 85025; 87070; 87880; 96372; 99283; J1885; Q0162

== ENCOUNTER 2018-09-11 09:31 | Emergency (ER) | payer OTHER ==
[~2018-09-11] VITALS: Ht 175.3 cm; Wt 89.8 kg
[~2018-09-11 09:31] MED LIST changes: +ALBU2.5V8 INH; -PROAIR HFA8.5 GM INH
--- NOTE | 2018-09-11 09:42 | PHYS DOC ---
Past Medical History Past Medical History: Asthma, Hypertension, Other Additional Past Medical Histor: EPILEPSY Past Surgical History: Hysterectomy Additional Past Surgical Histo: LUMPECTOMY Alcohol Use: None Drug Use: None Adult General HPI HPI Patient is a 37 year old female who presents with allergic reaction. 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 Patient does have a history of shellfish allergy. There has been no nausea or vomiting. Patient was given 25 mg of oral Benadryl at the class, EMS brought the patient in an administered epinephrine as well as 25 mg of Benadryl via IV with both of which have improved the difficulty breathing as well as the rash. Symptoms were moderate to severe in intensity. The rash was itchy. No previous history of this happening before. No fever.[] Review of Systems Review of Systems Constitutional: Denies fever or chills [] Eyes: Denies change in visual acuity, redness, or eye pain [] HENT: Denies nasal congestion or sore throat [] Respiratory: Denies cough [] Cardiovascular: No chest pain or palpitations[] GI: Denies abdominal pain, nausea, vomiting, bloody stools or diarrhea [] : Denies dysuria or hematuria [] Musculoskeletal: Denies back pain or joint pain [] Integument: See history of present illness[] Neurologic: Denies headache, focal weakness or sensory changes [] Endocrine: Denies polyuria or polydipsia [] All other systems were reviewed and found to be within normal limits, except as documented in this note. Current Medications Current Medications Current Medications Medications (Trade) Dose Ordered Sig/Bernice Start Time Stop Time Status Last Admin Dose Admin Famotidine (Pepcid Vial) 20 mg 1X ONCE 09/11/18 10:00 09/11/18 10:01 DC 09/11/18 10:02 20 MG Methylprednisolone Sodium Succinate (SOLU-Medrol 125MG VIAL) 125 mg 1X ONCE 09/11/18 10:00 09/11/18 10:01 DC 09/11/18 10:01 125 MG Sodium Chloride 1,000 ml @ 1,000 mls/hr Q1H 09/11/18 10:00 09/11/18 10:59 DC 09/11/18 10:00 1,000 MLS/HR Allergies Allergies Allergies Coded Allergies Type Severity Reaction Last Updated Verified Penicillins Allergy Intermediate 02/02/17 Yes shrimp Allergy Intermediate 09/11/18 Yes Uncoded Allergies Type Severity Reaction Last Updated Verified lobster Allergy Unknown 09/11/18 Physical Exam Physical Exam Constitutional: Well developed, well nourished, no acute distress, non-toxic appearance. [] HENT: Normocephalic, atraumatic, bilateral external ears normal, oropharynx moist, no oral exudates, nose normal. [] Eyes: PERRLA, EOMI, conjunctiva normal, no discharge. [] Neck: Normal range of motion, no tenderness, supple, no stridor. [] Cardiovascular:Heart rate is tachycardic with a regular rhythm, no murmur [] Lungs & Thorax: Bilateral breath sounds clear to auscultation [] Abdomen: Bowel sounds normal, soft, no tenderness, no masses, no pulsatile masses. [] Skin: Warm, dry, no erythema, no rash. No petechiae, no ulcers[] Back: No tenderness, no CVA tenderness. [] Extremities: No tenderness, no cyanosis, no clubbing, ROM intact, no edema. [] Neurologic: Alert and oriented X 3, normal motor function, normal sensory function, no focal deficits noted. [] Psychologic: Affect normal, judgement normal, mood normal. [] Current Patient Data Vital Signs Vital Signs Date Time Temp Pulse Resp B/P (MAP) Pulse Ox O2 Delivery O2 Flow Rate FiO2 09/11/18 09:40 98.4 110 16 146/82 (103) 98 Room Air 98.4 EKG EKG [] Radiology/Procedures Radiology/Procedures [] Course & Med Decision Making Course & Med Decision Making Pertinent Labs and Imaging studies reviewed. (See chart for details) ED course: Patient arrived, was placed in bed, tolerated exam well. Her heart rate improved with time and IV fluids. No worsening difficulty breathing. She was observed for 2 hours and released at the end of that observation period in improved condition. Medical decision making: This patient appears to have had an allergic reaction to a fish that she is uncertain about what fish she was working with in her [employer] training course. No evidence of staph scalded skin syndrome, no evidence of toxic epidermal necrolysis. This may have been an episode of anaphylaxis and so will prescribed an epinephrine pen for future episodes.[] Dragon Disclaimer Dragon Disclaimer This electronic medical record was generated, in whole or in part, using a voice recognition dictation system. Departure Departure Impression: Primary Impression: Allergic reaction Disposition: 01 HOME, SELF-CARE Condition: IMPROVED Referrals: UNKNOWN PCP NAME (PCP) Patient Instructions: Anaphylactic Reaction Additional Instructions: Follow-up with your regular doctor in 2 days. If you do not have regular doctor list of local clinics will be provided for you. Return to the ER if worsening rash, difficulty breathing, or any other concerns. Scripts Famotidine (PEPCID) 20 Mg Tablet 20 MG PO BID for 7 Days, #14 TAB Prov: MAYO HUSAIN DO 09/11/18 Prednisone (PREDNISONE) 50 Mg Tablet 50 MG PO DAILY for 7 Days, #7 TAB Prov: MAYO HUSAIN DO 09/11/18 Hydroxyzine Hcl (HYDROXYZINE HCL) 25 Mg Tablet 25 MG PO QID, #30 TAB Prov: MAYO HUSAIN DO 09/11/18 Epinephrine (EPIPEN 2-TOREY) 0.3 Mg/0.3 Ml Auto.injct 0.3 MG IJ 1X, #1 SYR Use if you develop an allergic reaction with difficulty breathing Prov: MAYO HUSAIN DO 09/11/18 Problem Qualifiers Primary Impression: Allergic reaction Encounter type: initial encounter Qualified Codes: T78.40XA - Allergy, unspecified, initial encounter MAYO HUSAIN DO Sep 11, 2018 09:42
[2018-09-11] MEDS ORDERED: FAMOTIDINE 20 MG/2 ML VIAL IVP ONE (10:00)
[2018-09-11] MEDS ORDERED: methylPREDNISolone SOD SUCC PF 125 MG/2 ML VIAL. IV ONE (10:00)
[2018-09-11] MEDS ORDERED: IV NORMAL SALINE 1000ML BAG 1,000 ML IV SCH (10:00)
[2018-09-11 11:08] VITALS: BP 116/57
[2018-09-11] MEDS ORDERED: HYDR25TA PO (11:16)
[2018-09-11] MEDS ORDERED: FAMO-63 PO (11:16)
[2018-09-11] MEDS ORDERED: PRED50TA PO (11:16)
[2018-09-11] MEDS ORDERED: EPIPEN 2-P0.3 MG/0.3 IJ (11:16)
== END 2018-09-11 11:35 | disposition home or self-care (01) ==
LOC: ER 09:31
DX: T78.1XXA Other adverse food reactions, not elsewhere classified, initial encounter (principal); J45.909 Unspecified asthma, uncomplicated; I10 Essential (primary) hypertension; G40.901 Epilepsy, unspecified, not intractable, with status epilepticus; Z88.0 Allergy status to penicillin; Z91.013 Allergy to seafood; X58.XXXA Exposure to other specified factors, initial encounter
CPT/HCPCS: 96374; 96375; 99283; J2930; J3490; J7030; 96361

== ENCOUNTER 2018-11-24 09:06 | Emergency (ER) | payer OTHER ==
[~2018-11-24] VITALS: Ht 175.3 cm; Wt 94.3 kg
[~2018-11-24 09:06] MED LIST changes: +EPIPEN 2-P0.3 MG/0.3 IJ; +FAMO-63 PO; +HYDR25TA PO
[2018-11-24 09:14] VITALS: BP 138/84
[2018-11-24] MEDS ORDERED: ONDANSETRON ODT 4 MG TAB.RAPDIS. PO ONE (09:30)
[2018-11-24] MEDS ORDERED: predniSONE 20 MG TABLET PO ONE (09:30)
[2018-11-24] MEDS ORDERED: ONDA4TAB12 PO (09:31)
[2018-11-24] MEDS ORDERED: PRED20TA PO (09:31)
--- NOTE | 2018-11-24 09:32 | PHYS DOC ---
Past Medical History Past Medical History: Asthma, Bipolar, Hypertension, Migraines Additional Past Medical Histor: epilepsy Past Surgical History: Hysterectomy Additional Past Surgical Histo: lumpectomy from chest Alcohol Use: None Drug Use: None Adult General Chief Complaint Chief Complaint: SKIN RASH/ABSCESS HPI HPI 38-year-old female presents to ER via POV for complaints of sudden onset of right arm rash and itching. 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 Patient states she has reddened rash. Patient states she felt nauseated and had episode of vomiting and felt slightly short of air. Patient denies cough, sore or swollen throat, difficulty swallowing, or chest tightness. She denies any medications prior to arrival. Review of Systems Review of Systems Constitutional: Denies fever or chills [] Eyes: Denies change in visual acuity, redness, or eye pain [] HENT: Denies nasal congestion or sore throat/swelling or difficulty swallowing Respiratory: Denies cough. Reports felt SOA with onset of sxs Cardiovascular: Denies chest tightness/pain GI: Denies abdominal pain, bloody stools or diarrhea. Reports N/V x1 Musculoskeletal: Denies back pain or joint pain [] Integument: Reports inner rt elbow rash/itching Neurologic: Denies headache, focal weakness or sensory changes [] All other systems were reviewed and found to be within normal limits, except as documented in this note. Current Medications Current Medications Current Medications Medications (Trade) Dose Ordered Sig/Bernice Start Time Stop Time Status Last Admin Dose Admin Bacitracin 1 boris 1X ONCE 11/24/18 09:45 11/24/18 09:46 DC Diphenhydramine HCl (Benadryl) 25 mg 1X ONCE 11/24/18 10:00 11/24/18 10:00 DC 11/24/18 09:54 25 MG Famotidine (Pepcid) 20 mg 1X ONCE 11/24/18 10:00 11/24/18 10:00 DC 11/24/18 09:54 20 MG Neomycin/ Polymyxin/ Bacitracin (Triple Antibiotic Ointment) 1 pkt 1X ONCE 11/24/18 10:00 11/24/18 10:00 DC 11/24/18 09:54 1 PKT Ondansetron HCl (Zofran Odt) 4 mg 1X ONCE 11/24/18 09:30 11/24/18 09:31 DC 11/24/18 09:25 4 MG Prednisone (Prednisone) 40 mg 1X ONCE 11/24/18 09:30 11/24/18 09:31 DC 11/24/18 09:25 40 MG Allergies Allergies Allergies Coded Allergies Type Severity Reaction Last Updated Verified Penicillins Allergy Intermediate 02/02/17 Yes shrimp Allergy Intermediate 09/11/18 Yes Uncoded Allergies Type Severity Reaction Last Updated Verified lobster Allergy Unknown 09/11/18 Physical Exam Physical Exam Constitutional: Well developed, well nourished, no acute distress, non-toxic appearance. [] HENT: Normocephalic, atraumatic, oropharynx moist- no pharyngeal swelling/erythema- uvula midline, no oral exudates, nose normal. [] Eyes: Pupils equal, conjunctiva normal, no discharge. [] Neck: Normal range of motion, no tenderness, supple, no stridor. Trachea midline Cardiovascular: Heart rate regular rhythm, no murmur [] Lungs & Thorax: Bilateral breath sounds clear to auscultation- resp. equal/nonlabored. Speaking in full sentences Skin: Warm, dry. Extremities: No cyanosis, no clubbing, ROM intact, no edema. 2+ radial bilat. Rt inner AC area with reddened rash non-raised without papules/bleeding/drainage. Appears pt has been scratching area. Rash is localized to AC area without red streaking from site- no other rash on exam Neurologic: Alert and oriented X 3, normal motor function, normal sensory function, no focal deficits noted. [] Psychologic: Affect normal, judgement normal, mood normal. [] Current Patient Data Vital Signs Vital Signs Date Time Temp Pulse Resp B/P (MAP) Pulse Ox O2 Delivery O2 Flow Rate FiO2 11/24/18 09:14 98.1 72 20 138/84 (102) 96 Room Air 98.1 EKG EKG [] Radiology/Procedures Radiology/Procedures [] Course & Med Decision Making Course & Med Decision Making Pt initially did not want dose of Benadryl as she was wanting to go back to work and Benadryl makes her tired. Patient reports she had increased itching on bi lateral forearms and is requesting additional medication. Patient was provided with dose of Pepcid and Benadryl while in the ER. Patient is having no respiratory distress she is anxious and emotional support was provided. Lung sounds remained clear bilateral pharyngeal exam remains NL. Discussion had with pt regarding contact dermatitis and allergic reaction- discussed as pt is a broiler chef or cook that she may have come into contact with food she was having a reaction to. Pt reported they had looked thru the frig at work- no seafood found. Discussed possible reaction to other type of food. Pt following discussion is in no distress. Education provided on s&s to return to ER for and d/c instructions were discussed. Pt to f/u with her PCP if symptoms persist or with concerns. Will provide Rx for prednisone with initial dose provided in ER. Dragon Disclaimer Rebekah Disclaimer This electronic medical record was generated, in whole or in part, using a voice recognition dictation system. Departure Departure Impression: Primary Impression: Contact dermatitis Additional Impression: Nausea & vomiting Disposition: 01 HOME, SELF-CARE Condition: STABLE Referrals: CYDNEY TONG APRN (PCP) Patient Instructions: Contact Dermatitis, Nausea and Vomiting Additional Instructions: If symptoms persist follow-up with your doctor for re-evaluation. You can try over the counter antihistamines such as Benedryl ointment or oral medication as directed on container. Start your prednisone prescription tomorrow 11/25/18 as you were provided with dose while in the Emergency Department. Scripts Ondansetron (ONDANSETRON ODT) 4 Mg Tab.rapdis 1 TAB PO PRN Q6-8HRS PRN for NAUSEA, #6 TAB 0 Refills Prov: OFELIA RICHEY APRN 11/24/18 Prednisone (PREDNISONE) 20 Mg Tablet 2 TAB PO DAILY, #8 TAB 0 Refills Start on 11/25/18 Prov: OFELIA RICHEY APRN 11/24/18 Problem Qualifiers OFELIA RICHEY APRN November 24, 2018 09:32
[2018-11-24] MEDS ORDERED: NEOMY/BACITR/POLYMYXIN OINT PACKET. TP ONE ×2 (09:43→10:00)
[2018-11-24] MEDS ORDERED: BACITRACIN TOPICAL OINT 14GM TUBE. TP ONE (09:45)
[2018-11-24] MEDS ORDERED: diphenhydrAMINE HCL 25 MG CAPSULE PO ONE (10:00)
[2018-11-24] MEDS ORDERED: FAMOTIDINE 20 MG TABLET. PO ONE (10:00)
== END 2018-11-24 09:59 | disposition home or self-care (01) ==
LOC: ER 09:06
DX: L25.9 Unspecified contact dermatitis, unspecified cause (principal); R11.2 Nausea with vomiting, unspecified; F31.9 Bipolar disorder, unspecified; J45.909 Unspecified asthma, uncomplicated; I10 Essential (primary) hypertension; G43.909 Migraine, unspecified, not intractable, without status migrainosus; G40.909 Epilepsy, unspecified, not intractable, without status epilepticus; Z90.710 Acquired absence of both cervix and uterus; Z88.0 Allergy status to penicillin; Z91.013 Allergy to seafood
CPT/HCPCS: 99284; J7512; Q0162; Q0163

== ENCOUNTER 2019-02-07 19:47 | Emergency (ER) | payer OTHER ==
[~2019-02-07] VITALS: Ht 176.5 cm; Wt 64.9 kg
[~2019-02-07 19:47] MED LIST changes: +ONDA4TAB12 PO; +PRED20TA PO
[2019-02-07] MEDS ORDERED: IV NORMAL SALINE 1000ML BAG 1,000 ML IV ONE ×2 (20:00)
[2019-02-07 20:14] LABS: BASO % 0 % (0-3); EOS # 0.4 x10^3/uL (0.0-0.7); EOS % 3 % (0-3); HEMOGLOBIN 13.9 g/dL (12.0-15.5); LYMPH # 1.9 x10^3/uL (1.0-4.8); LYMPH % 17 % (24-48); MEAN CORPUSCULAR HEMOGLOBIN 33 pg (25-35); MEAN CORPUSCULAR HGB CONC 35 g/dL (31-37); MEAN CORPUSCULAR VOLUME 95 fL (79-100); MONO # 0.8 x10^3/uL (0.0-1.1); MONO % 7 % (0-9); NEUT # 8.2 x10^3/uL (1.8-7.7); NEUT % 73 % (31-73); PLATELET COUNT 240 x10^3/uL (140-400); RED BLOOD COUNT 4.21 x10^6/uL (3.50-5.40); RED CELL DISTRIBUTION WIDTH 13.2 % (11.5-14.5); WHITE BLOOD COUNT 11.3 x10^3/uL (4.0-11.0)
[2019-02-07 20:22] LABS: PREG TEST PT QUAL NEGATIVE (NEG)
[2019-02-07 20:23] LABS: CALCIUM 9.5 mg/dL (8.5-10.1); CREATININE 1.3 mg/dL (0.6-1.0); GFR 45.6; POTASSIUM 3.8 mmol/L (3.5-5.1)
[2019-02-07 20:30] LABS: ALBUMIN/GLOBULIN RATIO 1.2 (1.0-1.7); MAGNESIUM 1.9 mg/dL (1.8-2.4); TOTAL BILIRUBIN 0.4 mg/dL (0.2-1.0); TOTAL PROTEIN 7.4 g/dL (6.4-8.2)
[2019-02-07 20:50] VITALS: BP 130/85
--- NOTE | 2019-02-07 21:05 | PHYS DOC ---
Past Medical History Past Medical History: Asthma, Cancer, Hypertension, Other Additional Past Medical Histor: EPILEPSY, BREAST CANCER Past Surgical History: Hysterectomy, Oophorectomy, Other Additional Past Surgical Histo: LUMPECTOMY Alcohol Use: None Drug Use: None Adult General Chief Complaint Chief Complaint: SEIZURE HPI HPI Patient is a 38 year old female with history of fatigue and grand mal seizures who presents from outdoor venue with 3 witnessed petit mal seizures. Patient does not recall episodes duration of episodes but returned to baseline prior to EMS arrival the GCS of 15. She states she is on Vimpat and compliant with medications. Patient is been working outdoors for greater than 4 hours with heat index greater than 110F . States she has not urinated in the past 4 hours. Denies chest pain palpitations, shortness of breath, leg pain or cramps. No o ther acute symptoms or complaints.[] Review of Systems Review of Systems Symptoms as per history of present illness. All other review symptoms are negative. All other systems were reviewed and found to be within normal limits, except as documented in this note. Current Medications Current Medications Current Medications Medications (Trade) Dose Ordered Sig/Bernice Start Time Stop Time Status Last Admin Dose Admin Sodium Chloride 1,000 ml @ 1,000 mls/hr 1X ONCE 02/07/19 20:00 02/07/19 20:59 02/07/19 20:04 1,000 MLS/HR Allergies Allergies Allergies Coded Allergies Type Severity Reaction Last Updated Verified Penicillins Allergy Intermediate 02/02/17 Yes shrimp Allergy Intermediate 09/11/18 Yes Uncoded Allergies Type Severity Reaction Last Updated Verified lobster Allergy Unknown 09/11/18 Physical Exam Physical Exam Constitutional: Well developed, well nourished, no acute distress, non-toxic appearance. [] HENT: Normocephalic, atraumatic, bilateral external ears normal, oropharynx moist, no oral exudates, nose normal. [] Eyes: PERRLA, EOMI, conjunctiva normal, no discharge. [] Neck: Normal range of motion, no tenderness, supple, no stridor. [] Cardiovascular:Heart rate regular rhythm, no murmur [] Lungs & Thorax: Bilateral breath sounds clear to auscultation [] Abdomen: Bowel sounds normal, soft, no tenderness, no masses, no pulsatile masses. [] Skin: Warm, dry, no erythema, no rash. [] ] Extremities: No tenderness, no cyanosis, no clubbing, ROM intact, no edema. [] Neurologic: Alert and oriented X 3, renal nerves II through XII grossly intact, normal motor function, normal sensory function, no focal deficits noted. [] Psychologic: Affect normal, judgement normal, mood normal. [] Current Patient Data Vital Signs Vital Signs Date Time Temp Pulse Resp B/P (MAP) Pulse Ox O2 Delivery O2 Flow Rate FiO2 02/07/19 19:51 98.5 85 20 117/78 (91) 97 Room Air 98.5 Lab Values Laboratory Tests Test 02/07/19 20:05 White Blood Count 11.3 x10^3/uL (4.0-11.0) H Red Blood Count 4.21 x10^6/uL (3.50-5.40) Hemoglobin 13.9 g/dL (12.0-15.5) Hematocrit 40.0 % (36.0-47.0) Mean Corpuscular Volume 95 fL (79-100) Mean Corpuscular Hemoglobin 33 pg (25-35) Mean Corpuscular Hemoglobin Concent 35 g/dL (31-37) Red Cell Distribution Width 13.2 % (11.5-14.5) Platelet Count 240 x10^3/uL (140-400) Neutrophils (%) (Auto) 73 % (31-73) Lymphocytes (%) (Auto) 17 % (24-48) L Monocytes (%) (Auto) 7 % (0-9) Eosinophils (%) (Auto) 3 % (0-3) Basophils (%) (Auto) 0 % (0-3) Neutrophils # (Auto) 8.2 x10^3/uL (1.8-7.7) H Lymphocytes # (Auto) 1.9 x10^3/uL (1.0-4.8) Monocytes # (Auto) 0.8 x10^3/uL (0.0-1.1) Eosinophils # (Auto) 0.4 x10^3/uL (0.0-0.7) Basophils # (Auto) 0.0 x10^3/uL (0.0-0.2) Sodium Level 139 mmol/L (136-145) Potassium Level 3.8 mmol/L (3.5-5.1) Chloride Level 101 mmol/L (98-107) Carbon Dioxide Level 24 mmol/L (21-32) Anion Gap 14 (6-14) Blood Urea Nitrogen 21 mg/dL (7-20) H Creatinine 1.3 mg/dL (0.6-1.0) H Estimated GFR (Cockcroft-Gault) 45.6 BUN/Creatinine Ratio 16 (6-20) Glucose Level 103 mg/dL (70-99) H Calcium Level 9.5 mg/dL (8.5-10.1) Magnesium Level 1.9 mg/dL (1.8-2.4) Total Bilirubin 0.4 mg/dL (0.2-1.0) Aspartate Amino Transferase (AST) 17 U/L (15-37) Alanine Aminotransferase (ALT) 25 U/L (14-59) Alkaline Phosphatase 94 U/L (46-116) Creatine Kinase 123 U/L (26-192) Total Protein 7.4 g/dL (6.4-8.2) Albumin 4.0 g/dL (3.4-5.0) Albumin/Globulin Ratio 1.2 (1.0-1.7) Serum Test, Qualitative Negative (NEG) Laboratory Tests 02/07/19 20:05 Laboratory Tests 02/07/19 20:05 EKG EKG [EKG: Reviewed] Radiology/Procedures Radiology/Procedures [] Course & Med Decision Making Course & Med Decision Making Pertinent Labs and Imaging studies reviewed. (See chart for details) [Patient asymptomatic in the ED with return to baseline mental state. His labs reviewed and unremarkable. IV fluids given for treatment of possible heat illness as likely trigger off underlying seizure disorder. Recommendations are staying in a cool dry appointment and continue home seizure medications. Neurology follow-up. Return precautions reviewed. Patient verbalizes understanding and agreement discharge instructions prior to departure.] Dragon Disclaimer Dragon Disclaimer This electronic medical record was generated, in whole or in part, using a voice recognition dictation system. Departure Departure Impression: Primary Impression: Breakthrough seizure Disposition: 01 HOME, SELF-CARE Condition: Referrals: CYDNEY TONG APRN (PCP) Patient Instructions: Seizure Disorder, Child, Generalized Tonic-Clonic Additional Instructions: You were evaluated in the emergency department for seizure episodes. Lab work was checked and is unremarkable. Your seizures were likely triggered by exposure to excessive and prolonged heat. Please stay in a cool air-conditioned environment for the next 2 days, increase fluids and take seizure medications as prescribed. Follow-up with your neurologist for further management of seizure disorder. Return to the ED if new or worsening symptoms. JAZMÍN NOVOA DO Feb 07, 2019 21:05
--- NOTE | 2019-02-08 07:45 | EKG ---
[facility] [address] [place] [address] Test Date: 2019-02-07 Test Time: 20:01:33 Pat Name: CATALINA DE LOS SANTOS Department: Room: Gender: F Air Conditioning Equipment Mechanic: : 1980 Requested By: JAZMÍN NOVOA Order Number: [id number] Reading MD: Measurements Intervals [place] Rate: 85 P: 42 MS: 150 QRS: 0 QRSD: 80 T: 24 QT: 352 QTc: 424 Interpretive Statements Cannot analyze ECG CHEST LEAD(S) MISSING! (Measurements might be questionable) RI6.01 Unconfirmed report No previous ECG available for comparison
== END 2019-02-07 21:20 | disposition home or self-care (01) ==
LOC: ER 19:47
DX: G40.409 Other generalized epilepsy and epileptic syndromes, not intractable, without status epilepticus (principal); J45.909 Unspecified asthma, uncomplicated; I10 Essential (primary) hypertension; Z88.0 Allergy status to penicillin; Z91.013 Allergy to seafood; Z88.8 Allergy status to other drugs, medicaments and biological substances
CPT/HCPCS: 36415; 80053; 82550; 83735; 84703; 85025; 93005; 99285; J7030

== ENCOUNTER 2019-06-25 13:22 | Emergency (ER) | payer OTHER ==
[~2019-06-25] VITALS: Ht 175.3 cm; Wt 95.3 kg
[2019-06-25 14:56] VITALS: BP 120/75
--- NOTE | 2019-06-25 15:21 | RAD ---
PA and lateral views of the chest. Comparison: None. Indication: Cough and congestion for 2 weeks Findings: The heart size is normal. No pneumothorax or effusion. No air space or interstitial disease. The bony structures are intact. Impression: 1. No acute cardiopulmonary process. Electronically signed by: Sen Ortiz MD (06/25/2019 3:18 PM) [facility]
[2019-06-25] MEDS ORDERED: AZIT250T6 PO (15:26)
[2019-06-25] MEDS ORDERED: ALBU2.5V8 INH (15:26)
[2019-06-25] MEDS ORDERED: METH4TAB2 PO (15:26)
--- NOTE | 2019-06-25 15:27 | PHYS DOC ---
Past Medical History Past Medical History: Asthma, Cancer, Hypertension, Other Additional Past Medical Histor: EPILEPSY, BREAST CANCER Past Surgical History: Hysterectomy, Oophorectomy, Other Additional Past Surgical Histo: LUMPECTOMY Alcohol Use: None Drug Use: None Adult General Chief Complaint Chief Complaint: Congestion HPI HPI Patient is a 38 year old female who presents with cough, nasal congestion, vomiting from coughing for last 2 weeks. Patient states she also has chills times. Patient has a history of asthma. Patient states she has been using her albuterol inhaler in her nebulizer machine every 6 hours. Patient rates her overall comfort 6 out of 10. Patient states she has only been taking TheraFlu and Benadryl. Review of Systems Review of Systems HENT: nasal congestion, ear pain, or sore throat [] Respiratory: cough or denies shortness of breath [] GI: Denies abdominal pain, nausea. vomiting with coughing, bloody stools or diarrhea [] All other systems were reviewed and found to be within normal limits, except as documented in this note. Allergies Allergies Allergies Coded Allergies Type Severity Reaction Last Updated Verified Penicillins Allergy Intermediate 02/02/17 Yes shrimp Allergy Intermediate 09/11/18 Yes Uncoded Allergies Type Severity Reaction Last Updated Verified lobster Allergy Unknown 09/11/18 Physical Exam Physical Exam Constitutional: Well developed, well nourished, no acute distress, non-toxic appearance. [] HENT: Normocephalic, atraumatic, bilateral external ears normal, oropharynx moist, no oral exudates, nose normal. Bilateral otitis media. [] Eyes: PERRLA, EOMI, conjunctiva normal, no discharge. [] Neck: Normal range of motion, no tenderness, supple, no stridor. [] Cardiovascular:Heart rate regular rhythm, no murmur [] Lungs & Thorax: Bilateral breath sounds clear, lower lobes diminished to a uscultation [] Abdomen: Bowel sounds normal, soft, no tenderness, no masses, no pulsatile masses. [] Skin: Warm, dry, no erythema, no rash. [] Neurologic: Alert and oriented X 3, normal motor function, normal sensory function, no focal deficits noted. [] Psychologic: Affect normal, judgement normal, mood normal. [] Current Patient Data Vital Signs Vital Signs Date Time Temp Pulse Resp B/P (MAP) Pulse Ox O2 Delivery O2 Flow Rate FiO2 12/2/19 14:56 98.0 64 18 120/75 (90) 98 Room Air 98.0 EKG EKG [] Radiology/Procedures Radiology/Procedures [] Impressions: [facility] [address] [place] [address] IMAGING REPORT Signed PATIENT: CATALINA DE LOS SANTOS ACCOUNT: [id number] : 1980 LOCATION: ER AGE: 38 SEX: F EXAM STATUS: REG ER ORD. PHYSICIAN: RAMIRO SALAZAR APRN REASON: COUGH, CONGESTION X2 WEEKS PROCEDURE: CHEST PA & LATERAL PA and lateral views of the chest. Comparison: None. Indication: Cough and congestion for 2 weeks Findings: The heart size is normal. No pneumothorax or effusion. No air space or interstitial disease. The bony structures are intact. Impression: 1. No acute cardiopulmonary process. Electronically signed by: Sen Ortiz MD (06/25/2019 3:18 PM) [facility] DICTATED and SIGNED BY: SEN ORTIZ MD DATE: 06/25/19 1518 Course & Med Decision Making Course & Med Decision Making Upper lungs are clear in lower lungs are diminished. She has bilateral otitis media. Vital signs within normal limits. Speaks in full clear senses. Skin pink warm and dry. Mucous membranes moist. Patient denies nausea, vomiting, abdominal pain, dizziness, numbness or tingling, visual changes, weakness, diarrhea, fever. Throat is reddened but not swollen on there are no exudates. Chest X-ray shows no acute findings. Dragon Disclaimer Dragon Disclaimer This electronic medical record was generated, in whole or in part, using a voice recognition dictation system. Departure Departure Impression: Primary Impression: Upper respiratory infection Additional Impression: Otitis media Disposition: 01 HOME, SELF-CARE Condition: STABLE Referrals: CYDNEY TONG APRN (PCP) Patient Instructions: Otitis Media, Adult, Upper Respiratory Infection, Adult Additional Instructions: FOLLOW UP WITH PRIMARY CARE PROVIDER. USE YOUR NEBULIZER EVERY 4 HOURS. TAKE MEDICATIONS PRESCRIBED. Scripts Albuterol Sulfate (PROAIR HFA INHALER) 8.5 Gm Hfa.aer.ad 1 PUFF INH PRN Q6HRS PRN for SHORTNESS OF BREATH, #1 INHALER 0 Refills Prov: RAMIRO SALAZAR [place] 06/25/19 Methylprednisolone (MEDROL) 4 Mg Tab.ds.pk 1 PKG PO UD, #1 PKG Prov: RAMIRO SALAZAR STRATEGIC PLANNING CONSULTANT 06/25/19 Azithromycin (AZITHROMYCIN TABLET) 250 Mg Tablet 1 PKG PO UD for 5 Days, #6 TAB 0 Refills 2 the first day followed by 1 for days 2-5 Prov: RAMIRO SALAZAR [place] 06/25/19 Problem Qualifiers Primary Impression: Upper respiratory infection URI type: unspecified URI Qualified Codes: J06.9 - Acute upper respiratory infection, unspecified Additional Impression: Otitis media Otitis media type: suppurative Chronicity: acute Laterality: bilateral Recurrence: non-recurrent Spontaneous tympanic membrane rupture: without spontaneous rupture Qualified Codes: H66.003 - Acute suppurative otitis media without spontaneous rupture of ear drum, bilateral RAMIRO SALAZAR [place] Jun 25, 2019 15:27
== END 2019-06-25 15:48 | disposition home or self-care (01) ==
LOC: ER 13:22
DX: J06.9 Acute upper respiratory infection, unspecified (principal); H66.003 Acute suppurative otitis media without spontaneous rupture of ear drum, bilateral; R11.10 Vomiting, unspecified; E11.10 Type 2 diabetes mellitus with ketoacidosis without coma; G40.909 Epilepsy, unspecified, not intractable, without status epilepticus; J45.909 Unspecified asthma, uncomplicated; I10 Essential (primary) hypertension; Z90.710 Acquired absence of both cervix and uterus; Z90.722 Acquired absence of ovaries, bilateral; Z88.0 Allergy status to penicillin; Z91.013 Allergy to seafood; Z91.038 Other insect allergy status
CPT/HCPCS: 71046; 99284

== ENCOUNTER 2019-06-28 07:40 | Emergency (ER) | payer OTHER ==
[~2019-06-28] VITALS: Ht 176.5 cm; Wt 98.0 kg
[2019-06-28 08:00] VITALS: BP 130/74
[2019-06-28] MEDS ORDERED: LIDO:MAALOX 1:1 20 ML SINGLE DOSE. SWSW ONE (08:30)
--- NOTE | 2019-06-28 09:07 | RAD ---
EXAM: Chest, 2 views. HISTORY: Cough. COMPARISON: 06/25/2019. FINDINGS: 2 views of the chest are obtained. There is no infiltrate, pleural effusion or pneumothorax. There is a stable prominent cardiac silhouette. IMPRESSION: No acute pulmonary finding. Electronically signed by: Edwige Thornton MD (06/28/2019 9:04 AM) [facility]
[2019-06-28] MEDS ORDERED: OXYMETAZOLINE 0.05% NASAL SPRAY 30ML BOTTLE. NS ONE (09:30)
[2019-06-28] MEDS ORDERED: DOXY100C2 PO (09:50)
[2019-06-28] MEDS ORDERED: OXYM30SP25 NS (09:50)
[2019-06-28] MEDS ORDERED: PSEU1TAB PO (09:50)
--- NOTE | 2019-06-28 09:50 | PHYS DOC ---
Past Medical History Past Medical History: Anxiety, Asthma, Cancer, Hypertension, Other Additional Past Medical Histor: EPILEPSY, BREAST CANCER Past Surgical History: Hysterectomy, Oophorectomy, Other Additional Past Surgical Histo: LUMPECTOMY Additional Information: 4 cigarettes daily Alcohol Use: None Drug Use: None Adult General Chief Complaint Chief Complaint: FLU SYMPTOM HPI HPI Patient is a 38 year old patient with history of anxiety, hypertension, asthma and heavy smoking who presents with complaining of earache. Patient states she has had cough and congestion for 2 weeks and seen in this emergency room and by her primary care physician and treated with antibiotic but her symptoms not getting better. Patient complaining of epigastric pain the last 2 weeks during episodes of cough and complaining of nausea and vomiting. Review of Systems Review of Systems Constitutional: Reports fever and chills Eyes: Denies change in visual acuity, redness, or eye pain [] HENT: Force nasal congestion and sore throat Respiratory: Cough and shortness of breath Cardiovascular: No additional information not addressed in HPI [] GI: Reports abdominal pain, nausea, vomiting, diarrhea [] : Denies dysuria or hematuria [] Musculoskeletal: Denies back pain or joint pain [] Integument: Denies rash or skin lesions [] Neurologic: Denies headache, focal weakness or sensory changes [] Endocrine: Denies polyuria or polydipsia [] All other systems were reviewed and found to be within normal limits, except as documented in this note. Current Medications Current Medications Current Medications Medications (Trade) Dose Ordered Sig/Bernice Start Time Stop Time Status Last Admin Dose Admin Multi-Ingredient Mouthwash/Gargle (Gi Cocktail) 20 ml 1X ONCE 06/28/19 08:30 06/28/19 08:31 DC 06/28/19 09:20 20 ML Oxymetazoline HCl (Afrin) 2 spray 1X ONCE 06/28/19 09:30 06/28/19 09:31 DC 06/28/19 09:43 2 SPRAY Allergies Allergies Allergies Coded Allergies Type Severity Reaction Last Updated Verified Penicillins Allergy Intermediate 02/02/17 Yes shrimp Allergy Intermediate 09/11/18 Yes Uncoded Allergies Type Severity Reaction Last Updated Verified lobster Allergy Unknown 09/11/18 Physical Exam Physical Exam Constitutional: Well nourished, mild distress, non-toxic appearance. [] HENT: Normocephalic, atraumatic, bilateral external ears normal, oropharynx moist, no oral exudates, nose normal. [] Eyes: PERRLA, EOMI, conjunctiva normal, no discharge. [] Neck: Normal range of motion, no tenderness, supple, no stridor. [] Cardiovascular:Heart rate regular rhythm, no murmur [] Lungs & Thorax: Bilateral breath sounds clear to auscultation [] Abdomen: Bowel sounds normal, soft, no tenderness, no masses, no pulsatile masses. [] Skin: Warm, dry, no erythema, no rash. [] Back: No tenderness, no CVA tenderness. [] Extremities: No tenderness, no cyanosis, no clubbing, ROM intact, no edema. [] Neurologic: Alert and oriented X 3, normal motor function, normal sensory function, no focal deficits noted. [] Psychologic: Affect anxious, mood normal. [] Current Patient Data Vital Signs Vital Signs Date Time Temp Pulse Resp B/P (MAP) Pulse Ox O2 Delivery O2 Flow Rate FiO2 06/28/19 08:00 97.7 74 18 130/74 (92) 94 Room Air 97.7 EKG EKG [] Radiology/Procedures Radiology/Procedures [][facility] [address] [place] [address] IMAGING REPORT Signed PATIENT: CATALINA DE LOS SANTOS ACCOUNT: [id number] : 1980 LOCATION: ER AGE: 38 SEX: F EXAM STATUS: REG ER ORD. PHYSICIAN: ROBYN PITT MD REASON: cough PROCEDURE: CHEST PA & LATERAL EXAM: Chest, 2 views. HISTORY: Cough. COMPARISON: 06/25/2019. FINDINGS: 2 views of the chest are obtained. There is no infiltrate, pleural effusion or pneumothorax. There is a stable prominent cardiac silhouette. IMPRESSION: No acute pulmonary finding. Electronically signed by: Edwige Malloy MD (06/28/2019 9:04 AM) [place] [id number] DICTATED and SIGNED BY: EDWIGE MALLOY MD DATE: 06/28/19 0904 Course & Med Decision Making Course & Med Decision Making Pertinent Imaging studies reviewed. (See chart for details) Evaluation of patient in ER showed 38-year-old female patient with history of asthma and anxiety and previous smoking brought in by EMS because of earache and flulike symptom. It was very anxious and complaining of multiple complaining. Patient had unremarkable physical exam and chest x-ray. She treated with Afrin nasal spray in ER and felt better and was advised to continue current home medication. Dragon Disclaimer Dragon Disclaimer This electronic medical record was generated, in whole or in part, using a voice recognition dictation system. Departure Departure Impression: Primary Impression: Acute bronchitis Additional Impression: Upper respiratory infection Disposition: HOME, SELF-CARE (at 0 [phone]) Condition: STABLE Referrals: CYDNEY TONG APRN (PCP) Patient Instructions: Acute Bronchitis, Smoking Cessation, Tips For Success, Upper Respiratory Infection, Adult Additional Instructions: Drink plenty of liquids Follow-up with your primary care physician in 3-5 days Return to ER if not getting better Scripts Oxymetazoline Hcl (AFRIN) 30 Ml [place] 2 SPR NS QID for nasal congestion, #1 SPRAY Prov: ROBYN PITT MD 06/28/19 Doxycycline Hyclate (DOXYCYCLINE HYCLATE) 100 Mg Capsule 1 CAP PO BID, #14 CAP Prov: ROBYN PITT MD 06/28/19 Pseudoephed/Chlorpheniramine (SUDOGEST COLD & ALLERGY TAB) 1 Each Tablet 1 EACH PO QID, #20 TAB Prov: ROBYN PITT MD 06/28/19 Problem Qualifiers Primary Impression: Acute bronchitis Bronchitis organism: unspecified organism Qualified Codes: J20.9 - Acute bronchitis, unspecified Additional Impression: Upper respiratory infection URI type: unspecified URI Qualified Codes: J06.9 - Acute upper respiratory infection, unspecified ROBYN PITT MD Jun 28, 2019 09:50
== END 2019-06-28 09:58 | disposition home or self-care (01) ==
LOC: ER 07:40
DX: J20.9 Acute bronchitis, unspecified (principal); J06.9 Acute upper respiratory infection, unspecified; J45.909 Unspecified asthma, uncomplicated; I10 Essential (primary) hypertension; G40.909 Epilepsy, unspecified, not intractable, without status epilepticus; F17.210 Nicotine dependence, cigarettes, uncomplicated; Z88.0 Allergy status to penicillin; Z91.013 Allergy to seafood; Z91.038 Other insect allergy status
CPT/HCPCS: 71046; 99284

== ENCOUNTER 2019-08-02 12:05 | Emergency (ER) | payer OTHER ==
[~2019-08-02 12:05] MED LIST changes: +DOXY100C2 PO; +OXYM30SP25 NS; +PSEU1TAB PO
[2019-08-02 12:18] VITALS: BP 130/88
[2019-08-02] MEDS ORDERED: ORPHENADRINE CITRATE 60 MG/2 ML VIAL. IM ONE (13:30)
[2019-08-02] MEDS ORDERED: ACETAMINOPHEN 500 MG TABLET PO ONE (13:30)
[2019-08-02] MEDS ORDERED: DEXAMETHASONE SOD PHOS 20 MG/5 ML VIAL. PO ONE (13:30)
--- NOTE | 2019-08-02 14:01 | RAD ---
Examination: LUMBAR SPINE 2-3V, SACRUM COCCYX 3V History: Fell downstairs 6 days ago. Pain. Comparison/Correlation: 04/14/2018 CT abdomen and pelvis with contrast Findings: 4 images of the lumbar spine spine were obtained. 3 images of the sacrum and coccyx were provided. Slight malalignment at the level of the coccyx noted. Lumbar spine and sacral alignment are unremarkable. Vertebral body heights are adequate. Deformity of the first coccygeal bone with slight anterior angulation is evident of concern for fracture on the lateral view. Slight narrowing at L4-5 is questioned but this may be artifactual and related to positioning. Sacrum is grossly unremarkable. Impression: Coccygeal fracture is suspected. Electronically signed by: Albert Campos MD (08/02/2019 1:58 PM) [facility]
[2019-08-02] MEDS ORDERED: HYDR-2761 PO (14:26)
--- NOTE | 2019-08-02 14:26 | PHYS DOC ---
Past Medical History Past Medical History: Anxiety, Asthma, Cancer, Hypertension, Other Additional Past Medical Histor: EPILEPSY, BREAST CANCER Past Surgical History: Hysterectomy, Oophorectomy, Other Additional Past Surgical Histo: LUMPECTOMY Alcohol Use: None Drug Use: None Adult General Chief Complaint Chief Complaint: BACK PAIN OR INJURY HPI HPI Patient is a 38 year old [f__sex] who presents with [] Review of Systems Review of Systems Constitutional: Denies fever or chills [] Eyes: Denies change in visual acuity, redness, or eye pain [] HENT: Denies nasal congestion or sore throat [] Respiratory: Denies cough or shortness of breath [] Cardiovascular: No additional information not addressed in HPI [] GI: Denies abdominal pain, nausea, vomiting, bloody stools or diarrhea [] : Denies dysuria or hematuria [] Musculoskeletal: Denies back pain or joint pain [] Integument: Denies rash or skin lesions [] Neurologic: Denies headache, focal weakness or sensory changes [] Endocrine: Denies polyuria or polydipsia [] All other systems were reviewed and found to be within normal limits, except as documented in this note. Current Medications Current Medications Current Medications Medications (Trade) Dose Ordered Sig/Bernice Start Time Stop Time Status Last Admin Dose Admin Acetaminophen (Tylenol) 1,000 mg 1X ONCE 08/02/19 13:30 08/02/19 13:31 DC 08/02/19 13:40 1,000 MG Dexamethasone Sodium Phosphate (Decadron) 10 mg 1X ONCE 08/02/19 13:30 08/02/19 13:31 DC 08/02/19 13:41 10 MG Orphenadrine Citrate (Norflex) 60 mg 1X ONCE 08/02/19 13:30 08/02/19 13:31 DC 08/02/19 13:41 60 MG Allergies Allergies Allergies Coded Allergies Type Severity Reaction Last Updated Verified Penicillins Allergy Intermediate 02/02/17 Yes shrimp Allergy Intermediate 09/11/18 Yes Uncoded Allergies Type Severity Reaction Last Updated Verified lobster Allergy Unknown 09/11/18 Physical Exam Physical Exam Constitutional: Well developed, well nourished, no acute distress, non-toxic appearance. [] HENT: Normocephalic, atraumatic, bilateral external ears normal, oropharynx moist, no oral exudates, nose normal. [] Eyes: PERRLA, EOMI, conjunctiva normal, no discharge. [] Neck: Normal range of motion, no tenderness, supple, no stridor. [] Cardiovascular:Heart rate regular rhythm, no murmur [] Lungs & Thorax: Bilateral breath sounds clear to auscultation [] Abdomen: Bowel sounds normal, soft, no tenderness, no masses, no pulsatile masses. [] Skin: Warm, dry, no erythema, no rash. [] Back: No tenderness, no CVA tenderness. [] Extremities: No tenderness, no cyanosis, no clubbing, ROM intact, no edema. [] Neurologic: Alert and oriented X 3, normal motor function, normal sensory function, no focal deficits noted. [] Psychologic: Affect normal, judgement normal, mood normal. [] Current Patient Data Vital Signs Vital Signs Date Time Temp Pulse Resp B/P (MAP) Pulse Ox O2 Delivery O2 Flow Rate FiO2 08/02/19 12:18 98.2 78 18 130/88 (102) 98 Room Air 98.2 EKG EKG [] Radiology/Procedures Radiology/Procedures [] Course & Med Decision Making Course & Med Decision Making Pertinent Labs and Imaging studies reviewed. (See chart for details) [] Dragon Disclaimer Dragon Disclaimer This electronic medical record was generated, in whole or in part, using a voice recognition dictation system. Departure Departure Impression: Primary Impression: Coccygeal pain, acute Additional Impression: Closed coccygeal fracture Disposition: 01 HOME, SELF-CARE Condition: STABLE Referrals: CYDNEY TONG APRN (PCP) Patient Instructions: Back Pain, Adult, [id number], Tailbone Injury, [id number] Additional Instructions: Fill the prescription and use it as directed. Activity as tolerated. Recommend you purchase a donut pillow and use it to sit on while your fractured tailbone heals. Follow-up with your primary care doctor in 1-2 days, return to the ER if symptoms worsen. Scripts Hydrocodone Bit/Acetaminophen (HYDROCODONE-APAP 5-325 ) 1 Tab Tablet 1 TAB PO PRN Q6HRS PRN for SEVERE PAIN 7-10 for 3 Days, #6 TAB 0 Refills Prov: CAROL ANN CASTELLANOS APRN 08/02/19 Problem Qualifiers Additional Impression: Closed coccygeal fracture Encounter type: initial encounter Qualified Codes: S32.2XXA - Fracture of coccyx, initial encounter for closed fracture CAROL ANN CASTELLANOS [employer] Aug 02, 2019 14:26
== END 2019-08-02 14:41 | disposition home or self-care (01) ==
LOC: ER 12:05
DX: S32.2XXA Fracture of coccyx, initial encounter for closed fracture (principal); J45.909 Unspecified asthma, uncomplicated; I10 Essential (primary) hypertension; G40.909 Epilepsy, unspecified, not intractable, without status epilepticus; Z90.722 Acquired absence of ovaries, bilateral; Z90.710 Acquired absence of both cervix and uterus; Z88.0 Allergy status to penicillin; Z91.013 Allergy to seafood; Z91.038 Other insect allergy status; W10.8XXA Fall (on) (from) other stairs and steps, initial encounter; Y93.89 Activity, other specified; Y92.89 Other specified places as the place of occurrence of the external cause; Y99.8 Other external cause status
CPT/HCPCS: 72100; 72220; 96372; 99284; J1100; J2360

== ENCOUNTER 2021-03-31 16:06 | Emergency (ER) | payer OTHER ==
[~2021-03-31] VITALS: Ht 175.3 cm; Wt 95.1 kg
[~2021-03-31 16:06] MED LIST changes: -DOXY100C2 PO; +DOXY100C3 PO; +HYDR-2761 PO
--- NOTE | 2021-03-31 18:20 | PHYS DOC ---
Past Medical History Past Medical History: Anxiety, Asthma, Cancer, Hypertension, Other Additional Past Medical Histor: EPILEPSY, BREAST CANCER Past Surgical History: Hysterectomy, Oophorectomy, Other Additional Past Surgical Histo: LUMPECTOMY Smoking Status: Current Every Day Smoker Alcohol Use: None Drug Use: None General Adult EDM: Chief Complaint: FLU SYMPTOM HPI: HPI: Patient is a 40 year old female who presents with 1 week of the breast and side pain with movement. She denies injury or lifting anything heavy. She states is with movement at night when she goes to turn or move it hurts. She denies fever, cough, abdominal pain, nausea, vomiting, diarrhea, chest pain, shortness of breath, dizziness, headache, fatigue, numbness or tingling, focal weakness. She is a smoker. Patient has a history of hypertension, hysterectomy, nephrectomy, lumpectomy, anxiety, asthma, breast cancer, epilepsy. When she is just sitting she has no pain but with movement she rates it at a sharp pain at a 7 out of 10. She has not tried any medications for. Review of Systems: Review of Systems: Constitutional: Denies fever or chills. [] Eyes: Denies change in visual acuity. [] HENT: Denies nasal congestion or sore throat. [] Respiratory: Denies cough or shortness of breath. [] Cardiovascular: Denies chest pain or edema. [] GI: Denies abdominal pain, nausea, vomiting, bloody stools or diarrhea. [] : Denies dysuria. [] Musculoskeletal: Denies back pain or joint pain. [] Integument: Denies rash. [] Neurologic: Denies headache, focal weakness or sensory changes. [] Endocrine: Denies polyuria or polydipsia. [] Lymphatic: Denies swollen glands. [] Psychiatric: Denies depression or anxiety. [] Heart Score: C/O Chest Pain: No Risk Factors: Risk Factors: DM, Current or recent (<one month) smoker, HTN, HLP, family history of CAD, obesity. Risk Scores: Score 0 - 3: 2.5% MACE over next 6 weeks - Discharge Home Score 4 - 6: 20.3% MACE over next 6 weeks - Admit for Clinical Observation Score 7 - 10: 72.7% MACE over next 6 weeks - Early Invasive Strategies Allergies: Allergies: Allergies Coded Allergies Type Severity Reaction Last Updated Verified Penicillins Allergy Intermediate 02/02/17 Yes shrimp Allergy Intermediate 09/11/18 Yes Uncoded Allergies Type Severity Reaction Last Updated Verified lobster Allergy Unknown 09/11/18 Physical Exam: PE: Constitutional: Well developed, well nourished, no acute distress, non-toxic appearance. [] HENT: Normocephalic, atraumatic, bilateral external ears normal, oropharynx moist, no oral exudates, nose normal. [] Eyes: PERRLA, EOMI, conjunctiva normal, no discharge. [] Neck: Normal range of motion, no tenderness, supple, no stridor. [] Cardiovascular:Heart rate regular rhythm, no murmur [] Lungs & Thorax: Bilateral upper breath sounds clear and lower diminished to auscultation [] Abdomen: Bowel sounds normal, soft, no tenderness, no masses, no pulsatile masses. [] Skin: Warm, dry, no erythema, no rash. [] Back: No tenderness, no CVA tenderness. [] Extremities: No tenderness, no cyanosis, no clubbing, ROM intact, no edema. [] Neurologic: Alert and oriented X 3, normal motor function, normal sensory function, no focal deficits noted. [] Psychologic: Affect normal, judgement normal, mood normal. [] Current Patient Data: Vital Signs: Vital Signs Date Time Temp Pulse Resp B/P (MAP) Pulse Ox O2 Delivery O2 Flow Rate FiO2 03/31/21 17:47 98.1 66 20 121/59 (102) 96 Room Air 98.1 EKG: EKG: [] Radiology/Procedures: Radiology/Procedures: [] Impression: [facility] [address] [place], [place] [id number] IMAGING REPORT Signed PATIENT: CATALINA DE LOS SANTOS ACCOUNT: [id number] : 1980 LOCATION: ER AGE: 40 SEX: F EXAM STATUS: REG ER ORD. PHYSICIAN: RAMIRO SALAZAR COMMISSIONING SPECIALIST REASON: PAIN PROCEDURE: CHEST PA & LATERAL Exam: Chest 2 views. Right RIBS 2 views INDICATION: Pain TECHNIQUE: Frontal and lateral views the chest. Frontal and oblique views of the right ribs Comparisons: None FINDINGS: The cardiomediastinal silhouette and pulmonary vessels are within normal limits. The lung and pleural spaces are clear. No displaced rib fractures IMPRESSION: 1. No acute cardiopulmonary process. 2. No displaced rib fractures Electronically signed by: Hosea Vann MD (03/31/2021 6:52 PM) [facility] DICTATED and SIGNED BY: HOSEA VANN MD DATE: 03/31/21 [id number] 0 Course & Med Decision Making: Course & Med Decision Making Pertinent Labs and Imaging studies reviewed. (See chart for details) COVID-19 CRITERIA: The patient was evaluated during the global COVID-19 pandemic, and that diagnosis was suspected/considered upon their initial presentation. Their evaluation, treatment and testing was consistent with current guidelines for patients who present with complaints or symptoms that may be related to COVID-19. See HPI. Alert and oriented x4. Ambulatory steady gait. Speaks in full clear sentences. Skin is pink warm and dry. Lungs are clear in upper lobes and diminished in lower lobes. Vital signs within normal limits. Abdomen is soft and nontender. No crepitus or subcutaneous emphysema. No bruising to the rib cage. No tenderness to the rib cage. [] Dragon Disclaimer: Dragon Disclaimer: This electronic medical record was generated, in whole or in part, using a voice recognition dictation system. COVID-19 Patient Risks: Age 65 or older: No Sign of co-morbidity: Yes Exp to person + for COVID: No Exp to PUI: No Travel from affected area: No Lower respiratory symptoms: No Fever: No Other: No PPE Use: Full PPE with N95 mask or PAPR: Yes Departure Departure Impression: Primary Impression: Rib pain on right side Disposition: 01 HOME / SELF CARE / HOMELESS Condition: STABLE Referrals: CYDNEY TONG APRN (PCP) Patient Instructions: Muscle Strain Additional Instructions: Follow up with your primary care. Take ibuprofen for your pain. Use a heating pad. Rest and drink plenty of fluids. If you start having nausea vomiting or fever return to the emergency room. RAMIRO SALAZAR APRN Mar 31, 2021 18:20
--- NOTE | 2021-03-31 18:55 | RAD ---
Exam: Chest 2 views. Right RIBS 2 views INDICATION: Pain TECHNIQUE: Frontal and lateral views the chest. Frontal and oblique views of the right ribs Comparisons: None FINDINGS: The cardiomediastinal silhouette and pulmonary vessels are within normal limits. The lung and pleural spaces are clear. No displaced rib fractures IMPRESSION: 1. No acute cardiopulmonary process. 2. No displaced rib fractures Electronically signed by: Hosea Wright MD (03/31/2021 6:52 PM) [facility]
[2021-03-31 20:02] VITALS: BP 132/76
--- NOTE | 2021-04-01 18:08 | NUR ---
IP: Attempted to contact pt concerning covid results. No answer, left a voicemail to return the call.
--- NOTE | 2021-04-02 18:50 | NUR ---
IP: Informed pt of negative covid test. Pt verbalized understanding.
== END 2021-03-31 20:03 | disposition home or self-care (01) ==
LOC: ER 16:06
DX: R07.81 Pleurodynia (principal); I10 Essential (primary) hypertension; J45.909 Unspecified asthma, uncomplicated; G40.909 Epilepsy, unspecified, not intractable, without status epilepticus; F17.200 Nicotine dependence, unspecified, uncomplicated; Z88.0 Allergy status to penicillin; Z91.013 Allergy to seafood; Z88.8 Allergy status to other drugs, medicaments and biological substances
CPT/HCPCS: 71046; 71100; 87426; 99284; U0003; U0005

== ENCOUNTER 2021-04-10 18:08 | Emergency (ER) | payer OTHER ==
[~2021-04-10] VITALS: Ht 167.6 cm; Wt 106.1 kg
[2021-04-10 20:42] LABS: BILIRUBIN,URINE NEGATIVE (NEG); CLARITY,URINE CLEAR; COLOR,URINE YELLOW; NITRITE,URINE NEGATIVE (NEG); PH,URINE 5.5 (<5.0-8.0); PROTEIN,URINE NEGATIVE (NEG-TRACE)
[2021-04-10 20:50] LABS: BACTERIA,URINE MODERATE /HPF (0-FEW)
[2021-04-10 20:51] LABS: RBC,URINE 0 /HPF (0-2)
[2021-04-10] MEDS ORDERED: KETOROLAC 30 MG/ML VIAL. IVP ONE (21:15)
[2021-04-10 21:36] LABS: BASO # 0.1 x10^3/uL (0.0-0.2); BASO % 0 % (0-3); EOS # 0.3 x10^3/uL (0.0-0.7); EOS % 3 % (0-3); HEMOGLOBIN 14.7 g/dL (12.0-15.5); LYMPH # 4.7 x10^3/uL (1.0-4.8); LYMPH % 39 % (24-48); MEAN CORPUSCULAR HEMOGLOBIN 33 pg (25-35); MEAN CORPUSCULAR HGB CONC 35 g/dL (31-37); MEAN CORPUSCULAR VOLUME 94 fL (79-100); MONO # 0.8 x10^3/uL (0.0-1.1); MONO % 7 % (0-9); NEUT # 6.1 x10^3/uL (1.8-7.7); NEUT % 51 % (31-73); PLATELET COUNT 304 x10^3/uL (140-400); RED BLOOD COUNT 4.49 x10^6/uL (3.50-5.40); RED CELL DISTRIBUTION WIDTH 13.3 % (11.5-14.5)
[2021-04-10 21:50] LABS: CALCIUM 9.3 mg/dL (8.5-10.1); CREATININE 0.9 mg/dL (0.6-1.0); POTASSIUM 4.3 mmol/L (3.5-5.1)
[2021-04-10 21:55] LABS: ALBUMIN 3.8 g/dL (3.4-5.0); TOTAL BILIRUBIN 0.2 mg/dL (0.2-1.0); TOTAL PROTEIN 7.7 g/dL (6.4-8.2)
[2021-04-10] MEDS ORDERED: MORPHINE SULFATE 2 MG/ML INJ. IVP ONE (23:00)
[2021-04-10] MEDS ORDERED: CONTRAST GIVEN. MC PRN (23:15)
[2021-04-10] MEDS ORDERED: IOHEXOL 300 MG/ML 100ML VIAL. IV ONE (23:15)
--- NOTE | 2021-04-10 23:17 | PHYS DOC ---
Past Medical History Past Medical History: Anxiety, Asthma, Cancer, Hypertension, Other Additional Past Medical Histor: EPILEPSY, BREAST CANCER Past Surgical History: Hysterectomy, Oophorectomy, Other Additional Past Surgical Histo: LUMPECTOMY Smoking Status: Current Every Day Smoker Alcohol Use: None Drug Use: None General Adult EDM: Chief Complaint: NAUSEA/VOMITING/DIARRHEA HPI: HPI: Patient is a 40 year old female presents with the chief complaint of nausea and vomiting. Patient also complaints of cough and shortness of breath. Patient was seen in this ER on Tuesday and had negative covid 19 test. Patients cough and SOB continues but patient now has nausea and vomiting. patient also has associated abdominal pain. Review of Systems: Review of Systems: Constitutional: Denies fever or chills. [] Eyes: Denies change in visual acuity. [] HENT: Denies nasal congestion or sore throat. [] Respiratory: positive cough Positive shortness of breath. [] Cardiovascular: Denies chest pain or edema. [] GI: Positive abdominal pain, Positive nausea, Positive vomiting, denies bloody stools or diarrhea. [] : Denies dysuria. [] Musculoskeletal: Denies back pain or joint pain. [] Integument: Denies rash. [] Neurologic: Denies headache, focal weakness or sensory changes. [] Endocrine: Denies polyuria or polydipsia. [] Lymphatic: Denies swollen glands. [] Psychiatric: Denies depression or anxiety. [] Heart Score: C/O Chest Pain: N/A Risk Factors: Risk Factors: DM, Current or recent (<one month) smoker, HTN, HLP, family history of CAD, obesity. Risk Scores: Score 0 - 3: 2.5% MACE over next 6 weeks - Discharge Home Score 4 - 6: 20.3% MACE over next 6 weeks - Admit for Clinical Observation Score 7 - 10: 72.7% MACE over next 6 weeks - Early Invasive Strategies Current Medications: Current Medications Medications (Trade) Dose Ordered Sig/Bernice Start Time Stop Time Status Last Admin Dose Admin Info (CONTRAST GIVEN -- Rx MONITORING) 1 each PRN DAILY PRN 04/10/21 23:15 04/12/21 23:14 Iohexol (Omnipaque 300 Mg/ml) 75 ml 1X ONCE 04/10/21 23:15 04/10/21 23:16 DC Ketorolac Tromethamine (Toradol 30mg Vial) 30 mg 1X ONCE 04/10/21 21:15 04/10/21 21:16 DC 04/10/21 21:28 30 MG Morphine Sulfate (Morphine Sulfate) 2 mg 1X ONCE 04/10/21 23:00 04/10/21 23:01 DC 04/10/21 23:05 2 MG Allergies: Allergies: Allergies Coded Allergies Type Severity Reaction Last Updated Verified Fish Containing Products Allergy Intermediate 04/10/21 Yes Penicillins Allergy Intermediate 02/02/17 Yes shrimp Allergy Intermediate 09/11/18 Yes Physical Exam: PE: General: alert, no acute distress. Skin: warm, dry and intact, no erythema, no rash. HENT: bilateral external ears normal, oropharynx moist, nose normal. Head:: Normocephalic, atraumatic. Neck: Trachea midline. Eyes: EOMI, Normal conjunctiva, No drainage CARDIOVASCULAR: Regular rate and rhythm RESPIRATORY: No respiratory distress Back: Full range of motion. MUSCULOSKELETAL: Full range of motion of bilateral upper and lower extremities. GASTROINTESTINAL: Abdomen soft without rebound or guarding. NEUROLOGICAL: Alert and noted to person, place and time. No neurological deficits observed Psychiatric: Cooperative. Normal judgment Current Patient Data: Labs: Laboratory Tests Test 04/10/21 20:07 04/10/21 20:17 04/10/21 21:30 04/10/21 22:15 Urine Collection Type Unknown Urine Color Yellow Urine Clarity Clear Urine pH 5.5 (<5.0-8.0) Urine Specific [place] >=1.030 (1.000-1.030) Urine Protein Negative mg/dL (NEG-TRACE) Urine Glucose (UA) Negative mg/dL (NEG) Urine Ketones (Stick) Negative mg/dL (NEG) Urine Blood Negative (NEG) Urine Nitrite Negative (NEG) Urine Bilirubin Negative (NEG) Urine Urobilinogen Dipstick 1.0 mg/dL (0.2 mg/dL) Urine Leukocyte Esterase Negative (NEG) Urine RBC 0 /HPF (0-2) Urine WBC 11-20 /HPF (0-4) Urine Squamous Epithelial Cells Mod /LPF Urine Bacteria Moderate /HPF (0-FEW) Urine Mucus Mod /LPF POC Urine HCG, Qualitative Hcg negative (Negative) White Blood Count 12.0 x10^3/uL (4.0-11.0) H Red Blood Count 4.49 x10^6/uL (3.50-5.40) Hemoglobin 14.7 g/dL (12.0-15.5) Hematocrit 42.0 % (36.0-47.0) Mean Corpuscular Volume 94 fL (79-100) Mean Corpuscular Hemoglobin 33 pg (25-35) Mean Corpuscular Hemoglobin Concent 35 g/dL (31-37) Red Cell Distribution Width 13.3 % (11.5-14.5) Platelet Count 304 x10^3/uL (140-400) Neutrophils (%) (Auto) 51 % (31-73) Lymphocytes (%) (Auto) 39 % (24-48) Monocytes (%) (Auto) 7 % (0-9) Eosinophils (%) (Auto) 3 % (0-3) Basophils (%) (Auto) 0 % (0-3) Neutrophils # (Auto) 6.1 x10^3/uL (1.8-7.7) Lymphocytes # (Auto) 4.7 x10^3/uL (1.0-4.8) Monocytes # (Auto) 0.8 x10^3/uL (0.0-1.1) Eosinophils # (Auto) 0.3 x10^3/uL (0.0-0.7) Basophils # (Auto) 0.1 x10^3/uL (0.0-0.2) Sodium Level 140 mmol/L (136-145) Potassium Level 4.3 mmol/L (3.5-5.1) Chloride Level 104 mmol/L (98-107) Carbon Dioxide Level 30 mmol/L (21-32) Anion Gap 6 (6-14) Blood Urea Nitrogen 14 mg/dL (7-20) Creatinine 0.9 mg/dL (0.6-1.0) Estimated GFR (Cockcroft-Gault) 69.0 BUN/Creatinine Ratio 16 (6-20) Glucose Level 102 mg/dL (70-99) H Calcium Level 9.3 mg/dL (8.5-10.1) Total Bilirubin 0.2 mg/dL (0.2-1.0) Aspartate Amino Transferase (AST) 8 U/L (15-37) L Alanine Aminotransferase (ALT) 28 U/L (14-59) Alkaline Phosphatase 111 U/L (46-116) Total Protein 7.7 g/dL (6.4-8.2) Albumin 3.8 g/dL (3.4-5.0) Albumin/Globulin Ratio 1.0 (1.0-1.7) SARS-CoV-2 Antigen (Rapid) Negative (NEGATIVE) Laboratory Tests 04/10/21 21:30 Laboratory Tests 04/10/21 21:30 Vital Signs: Vital Signs Date Time Temp Pulse Resp B/P (MAP) Pulse Ox O2 Delivery O2 Flow Rate FiO2 04/10/21 23:05 20 99 Room Air 04/10/21 22:38 62 156/75 (102) 04/10/21 18:41 97.6 97.6 EKG: EKG: [] Radiology/Procedures: Radiology/Procedures: [] Impression: PQRS compliance statement - One or more of the following individualized dose reduction techniques were utilized for this study: 1. Automated exposure control 2. Adjustment of the mA and/or kV according to patient size 3. Use of iterative reconstruction technique FINDINGS: Lower Chest: Basilar atelectasis with scattered areas of subsegmental atelectasis and/or scarring. Abdomen and Pelvis: The liver, gallbladder, spleen, adrenals, pancreas, and kidneys are unremarkable. There is a tiny hiatal hernia. There is circumferential coastal thickening of the distal esophagus which may be due to underdistention. There is also thickening and enhancement of the gastric mucosa with some mild submucosal thickening which may be secondary to underdistention is most pronounced in the gastric antrum/pylorus. No evidence of bowel obstruction or focal wall thickening to suggest inflammation. Sigmoid diverticulosis without evidence of diverticulitis. Appendix is normal. No pathologically enlarged abdominal or pelvic lymph nodes. Bladder is unremarkable. Uterus is absent. No suspicious adnexal masses. No free air or free fluid. Bones: No acute osseous findings. IMPRESSION: 1. Findings suggestive of gastritis. Otherwise, no evidence of acute process in the abdomen or pelvis. Course & Med Decision Making: Course & Med Decision Making Pertinent Labs and Imaging studies reviewed. (See chart for details) [] Dragon Disclaimer: Dragon Disclaimer: This electronic medical record was generated, in whole or in part, using a voice recognition dictation system. Departure Departure Impression: Primary Impression: Abdominal pain Additional Impressions: Viral syndrome Gastritis Disposition: HOME / SELF CARE / HOMELESS Condition: STABLE Referrals: CYDNEY TONG APRN (PCP) Patient Instructions: Abdominal Pain (Nonspecific), Chest Pain (Nonspecific), Gastritis, Adult, Viral Syndrome Scripts Famotidine (PEPCID) 40 Mg Tablet 40 MG PO HS, #30 TAB Prov: SUSAN HAYNES DO 04/11/21 SUSAN HAYNES DO Apr 10, 2021 23:16
--- NOTE | 2021-04-10 23:35 | RAD ---
EXAM: CHEST 1 VIEW History: Shortness of breath, cough COMPARISON: 03/31/2021. TECHNIQUE: Single portable radiograph of the chest FINDINGS: The cardiac silhouette is unremarkable. The lungs are clear bilaterally. The costophrenic sulci are clear and well demarcated. IMPRESSION: No radiographic evidence of an acute cardiopulmonary process. Electronically signed by: Venancio Silva MD (04/10/2021 11:32 PM) [id number]
--- NOTE | 2021-04-10 23:52 | RAD ---
EXAM: CT Abdomen and Pelvis with IV contrast CLINICAL HISTORY: Reason: abdominal pain / Spl. Instructions: 75ML OMNI 300 / History: . COMPARISON: none TECHNIQUE: Helical CT of the abdomen and pelvis was performed following the administration of intrave nous contrast. Axial, coronal and sagittal reformatted images were generated. PQRS compliance statement - One or more of the following individualized dose reduction techniques wer e utilized for this study: 1. Automated exposure control 2. Adjustment of the mA and/or kV according to patient size 3. Use of iterative reconstruction technique FINDINGS: Lower Chest: Basilar atelectasis with scattered areas of subsegmental atelectasis and/or scarring. Abdomen and Pelvis: The liver, gallbladder, spleen, adrenals, pancreas, and kidneys are unremarkable. There is a tiny hiatal hernia. There is circumferential coastal thickening of the distal esophagus wh ich may be due to underdistention. There is also thickening and enhancement of the gastric mucosa wit h some mild submucosal thickening which may be secondary to underdistention is most pronounced in the gastric antrum/pylorus. No evidence of bowel obstruction or focal wall thickening to suggest inflamm ation. Sigmoid diverticulosis without evidence of diverticulitis. Appendix is normal. No pathologically enlarged abdominal or pelvic lymph nodes. Bladder is unremarkable. Uterus is absent. No suspicious adnexal masses. No free air or free fluid. Bones: No acute osseous findings. IMPRESSION: 1. Findings suggestive of gastritis. Otherwise, no evidence of acute process in the abdomen or pelvis . Electronically signed by: Tal Menezes DO (04/10/2021 11:50 PM) [facility]
[2021-04-11 01:11] VITALS: BP 151/74
[2021-04-11] MEDS ORDERED: FAMO40TA57 PO (01:17)
--- NOTE | 2021-04-12 15:49 | NUR ---
IP: Informed pt of negative covid test. pt verbalized understanding.
== END 2021-04-11 01:28 | disposition home or self-care (01) ==
LOC: ER 18:08
DX: B34.9 Viral infection, unspecified (principal); Z20.822 Contact with and (suspected) exposure to COVID-19; K29.70 Gastritis, unspecified, without bleeding; J45.909 Unspecified asthma, uncomplicated; I10 Essential (primary) hypertension; G40.909 Epilepsy, unspecified, not intractable, without status epilepticus; F17.200 Nicotine dependence, unspecified, uncomplicated; Z90.710 Acquired absence of both cervix and uterus; Z90.722 Acquired absence of ovaries, bilateral; Z88.0 Allergy status to penicillin; Z91.013 Allergy to seafood
CPT/HCPCS: 36415; 71045; 74177; 80053; 81001; 81025; 85025; 87086; 87426; 96374; 96375; 99285; J1885; J2270; Q9967; U0003; U0005

== ENCOUNTER 2021-04-21 08:45 | Emergency (ER) | payer OTHER ==
[~2021-04-21] VITALS: Ht 175.3 cm; Wt 100.0 kg
[~2021-04-21 08:45] MED LIST changes: +FAMO40TA57 PO
[2021-04-21] MEDS ORDERED: IPRATRPIUM/ALBUTEROL 0.5/2.5MG 3 ML NEBU. NEB ONE (09:15)
[2021-04-21] MEDS ORDERED: NEOMYCIN/POLYMYXIN/HC OTIC SUSPENSION 10ML BOTTLE. AD ONE (09:15)
[2021-04-21] MEDS ORDERED: ONDANSETRON ODT 4 MG TAB.RAPDIS. PO ONE (09:15)
--- NOTE | 2021-04-21 09:36 | PHYS DOC ---
Past Medical History Past Medical History: Anxiety, Asthma, Cancer, Hypertension, Other Additional Past Medical Histor: EPILEPSY, BREAST CANCER (SILVA DUMONT) Past Surgical History: Hysterectomy, Oophorectomy, Other Additional Past Surgical Histo: LUMPECTOMY (SILVA DUMONT) Smoking Status: Current Every Day Smoker Alcohol Use: None Drug Use: None (SILVA DUMONT) General Adult EDM: Chief Complaint: SHORTNESS OF BREATH HPI: HPI: Patient is a 40 year old female with a history of asthma and anxiety who presents via EMS with 2-day history of shortness of breath and pleuritic chest pain. She has additional complaints of lightheadedness, right-sided ear and neck pain, abdominal pain, nausea and multiple episodes of vomiting this morning. She states she is used her albuterol inhaler twice today without symptom relief. She states her pain is worse with deep inspiration and is greater in her upper chest than lower. Patient reports when she took her medications this morning, she immediately threw them up. She has not been able to eat or drink anything today, as she immediately vomits. Patient denies h aving been vaccinated against COVID-19, but denies any sick contacts or exposures. Patient denies cough, headache, weakness and diarrhea. At this time, patient has no further complaints. (SILVA DUMONT) Review of Systems: Review of Systems: Constitutional: Denies fever or chills. Eyes: Denies change in visual acuity. HENT: See HPI. Respiratory: See HPI. Cardiovascular: Denies palpitations or edema. GI: See HPI : Denies dysuria or hematuria. Musculoskeletal: Denies back pain or joint pain. Integument: Denies rash or other lesions. Neurologic: See HPI. Psychiatric: Denies current feelings of depression or anxiety. (SILVA DUMONT) Heart Score: C/O Chest Pain: N/A (SILVA DUMONT) Allergies: Allergies: Allergies Coded Allergies Type Severity Reaction Last Updated Verified Fish Containing Products Allergy Intermediate 04/10/21 Yes Penicillins Allergy Intermediate 02/02/17 Yes shrimp Allergy Intermediate 09/11/18 Yes (SILVA DUMONT) Physical Exam: PE: Constitutional: Patient is sitting upright in bed, tearful, well developed, well nourished, non-toxic appearance. HENT: Normocephalic, atraumatic, bilateral external ears normal, left ear canal without erythema or swelling, right ear canal exam limited secondary to pain, oropharynx moist, no oral exudates, nose normal. Eyes: PERRLA, EOMI, conjunctiva normal, no discharge. Neck: Mild swelling to the right side anterior cervical lymph nodes with noted tenderness, normal range of motion, no stridor. Cardiovascular: Heart rate regular rhythm, no murmur. Lungs & Thorax: Patient speaks softly in short phrases, bilateral breath sounds clear to auscultation. Abdomen: Bowel sounds normal, soft, no tenderness, no masses, no pulsatile masses. Skin: Warm, dry, no erythema, no rash. Back: No step-offs, no bony tenderness, no paraspinal tenderness, no CVA tenderness. Extremities: No tenderness, no cyanosis, no clubbing, ROM intact, no edema. Neurologic: Alert and oriented x3, normal motor function, normal sensory function, no focal deficits noted. Psychologic: Affect normal, judgement normal, mood normal. (SILVA DUMONT) EKG: EKG: EKG Interpreted by Dr. Heller: Sinus arrhythmia 60 bpm with no ectopic beats. No concerning ST-T wave changes. Regular QR interval. (SILVA DUMONT) Radiology/Procedures: Radiology/Procedures: PROCEDURE: PORTABLE CHEST 1V Single view of the chest. 04/21/2021 9:35 AM Indication: Reason: SOB / Spl. Instructions: / History: Comparison: Chest radiograph April 10, 2021 Findings: There is no focal consolidation. There is no pleural effusion or pneumothorax. The cardiomediastinal silhouette and pulmonary vasculature are within normal limits. No acute osseous abnormalities are seen. Impression: No evidence of acute cardiopulmonary process. Electronically signed by: Kelton Wood MD (04/21/2021 9:49 AM) [id number] (SILVA DUMONT) Course & Med Decision Making: Course & Med Decision Making Pertinent Labs and Imaging studies reviewed. (See chart for details) Although patient denies feeling anxious at this time, she appears to be clinically anxious. Her respirations and oxygen saturation is reassuring despite her refractory shortness of breath. Ear wick was placed, however advancement was somewhat limited secondary to pain. Patient states that she feels much better after DuoNeb, Zofran and Ativan. Patient will be treated for acute otitis externa, with instruction to return if her pain does not improve. (SILVA DUMONT) Dragon Disclaimer: Dragon Disclaimer: This electronic medical record was generated, in whole or in part, using a voice recognition dictation system. (SILVA DUMONT) Departure Departure Impression: Primary Impression: Acute otitis externa of right ear Qualified Codes: H60.391 - Other infective otitis externa, right ear Additional Impressions: Asthma exacerbation Qualified Codes: J45.21 - Mild intermittent asthma with (acute) exacerbation Anxiety Disposition: HOME HEALTH CARE SERVICE Condition: STABLE Referrals: CYDNEY TONG APRN (PCP) Patient Instructions: Anxiety and Panic Attacks, [id number], Asthma, Adult, [id number], Otitis Externa, [id number] Additional Instructions: You may leave the earwick in your ear until it falls out. If it does not fall out within 5 days, please follow-up with your primary care provider for removal. Your primary care provider can also offer you additional evaluation and management after the infection improves some. If you develop a fever or your pain does not improve, please return to the emergency department. Scripts Ciprofloxacin/Hydrocortisone (CIPRO HC OTIC SUSPENSION) 10 Ml Drops.susp 3 DROP AD BID for 10 Days, #10 ML Use 3 drops in the right ear twice per day for 10 days. Prov: SILVA DUMONT 04/21/21 Attending Signature Attending Signature I have reviewed the PA/OPENSTACK DEVELOPER's note and plan of care. I was available for consultation as needed during the patient's visit in the emergency department. I agree with the clinical impression, plan, and disposition. (GIOVANNI HELLER DO) SILVA DUMONT Apr 21, 2021 09:36 GIOVANNI HELLER DO Apr 21, 2021 16:25
--- NOTE | 2021-04-21 09:52 | RAD ---
Single view of the chest. 04/21/2021 9:35 AM Indication: Reason: SOB / Spl. Instructions: / History: Comparison: Chest radiograph April 10, 2021 Findings: There is no focal consolidation. There is no pleural effusion or pneumothorax. The cardiome diastinal silhouette and pulmonary vasculature are within normal limits. No acute osseous abnormaliti es are seen. Impression: No evidence of acute cardiopulmonary process. Electronically signed by: Kelton Wood MD (04/21/2021 9:49 AM) [id number]
[2021-04-21] MEDS ORDERED: CIPR10DR AD (12:05)
[2021-04-21 12:26] VITALS: BP 104/56
== END 2021-04-21 13:01 | disposition home health service (06) ==
LOC: ER 08:45
DX: J45.21 Mild intermittent asthma with (acute) exacerbation (principal); H60.391 Other infective otitis externa, right ear; R07.81 Pleurodynia; M54.2 Cervicalgia; R42 Dizziness and giddiness; R11.2 Nausea with vomiting, unspecified; I10 Essential (primary) hypertension; G40.909 Epilepsy, unspecified, not intractable, without status epilepticus; F17.200 Nicotine dependence, unspecified, uncomplicated; Z88.0 Allergy status to penicillin; Z91.013 Allergy to seafood
CPT/HCPCS: 71045; 94640; 99285-25

== ENCOUNTER 2021-06-01 11:39 | Emergency (ER) | payer OTHER ==
[~2021-06-01] VITALS: Ht 175.3 cm; Wt 97.0 kg
[~2021-06-01 11:39] MED LIST changes: +CIPR10DR AD
[2021-06-01 14:49] LABS: BASO % 1 % (0-3); EOS % 1 % (0-3); HEMATOCRIT 39.6 % (36.0-47.0); LYMPH # 1.5 x10^3/uL (1.0-4.8); LYMPH % 45 % (24-48); MEAN CORPUSCULAR HEMOGLOBIN 32 pg (25-35); MEAN CORPUSCULAR HGB CONC 35 g/dL (31-37); MEAN CORPUSCULAR VOLUME 92 fL (79-100); MONO # 0.4 x10^3/uL (0.0-1.1); MONO % 11 % (0-9); NEUT # 1.4 x10^3/uL (1.8-7.7); NEUT % 43 % (31-73); PLATELET COUNT 169 x10^3/uL (140-400); RED BLOOD COUNT 4.32 x10^6/uL (3.50-5.40); RED CELL DISTRIBUTION WIDTH 12.8 % (11.5-14.5); WHITE BLOOD COUNT 3.4 x10^3/uL (4.0-11.0)
[2021-06-01] MEDS ORDERED: IV NORMAL SALINE 1000ML BAG 1,000 ML IV ONE (15:00)
[2021-06-01] MEDS ORDERED: KETOROLAC 15 MG/ML VIAL. IVP ONE (15:00)
[2021-06-01 15:03] LABS: CALCIUM 8.4 mg/dL (8.5-10.1); GFR 61.1
[2021-06-01 15:07] LABS: PREG TEST PT QUAL NEGATIVE (NEG)
[2021-06-01 15:09] LABS: ALBUMIN 3.5 g/dL (3.4-5.0); TOTAL BILIRUBIN 0.3 mg/dL (0.2-1.0)
[2021-06-01] MEDS ORDERED: IOHEXOL 300 MG/ML 100ML VIAL. IV ONE (15:15)
[2021-06-01] MEDS ORDERED: CONTRAST GIVEN. MC PRN (15:15)
[2021-06-01 15:35] VITALS: BP 148/77
--- NOTE | 2021-06-01 16:04 | RAD ---
EXAM: CT Abdomen and Pelvis with IV contrast CLINICAL HISTORY: Abdominal pain COMPARISON: none TECHNIQUE: Helical CT of the abdomen and pelvis was performed following the administration of intrave nous contrast. Axial, coronal and sagittal reformatted images were generated. PQRS compliance statement - One or more of the following individualized dose reduction techniques wer e utilized for this study: 1. Automated exposure control 2. Adjustment of the mA and/or kV according to patient size 3. Use of iterative reconstruction technique FINDINGS: Lower Chest: 1.2 cm nodular opacity in the left lower lobe is new compared to 04/10/2021. Given the relative rapid development this likely represents focal consolidative process or atelectasis however imaging follow- up to resolution is recommended. Abdomen and Pelvis: Focal low-attenuation along the falciform ligament likely focal fatty infiltration. Diffuse hepatic hypoattenuation. Gallbladder, pancreas, spleen and adrenal glands are unremarkable. S ymmetric nephrograms. Nonobstructing right lower pole renal calculus. No hydronephrosis. No hydrouret er. Bladder is unremarkable. Appendix is normal. Moderate colonic stool content is seen. No small or large bowel dilatation is seen. No abdominal or pelvic ascites. Aorta is normal in caliber. Bones: No aggressive osseous lesion is seen. IMPRESSION: 1. Hepatic hypoattenuation, fatty liver. 2. 1.2 cm nodular opacity in the left lower lobe likely focal consolidative process given the rapid development compared to 04/10/2021. However follow-up CT in 6-12 weeks is recommended to exclude under lying mass. 3. Otherwise no CT findings to account for acute abdominal pain. Electronically signed by: Sandip Torrez MD (06/01/2021 4:01 PM) [email or web address]
--- NOTE | 2021-06-01 16:10 | PHYS DOC ---
Past Medical History Past Medical History: Anxiety, Asthma, Cancer, Hypertension, Other Additional Past Medical Histor: EPILEPSY, BREAST CANCER Past Surgical History: Hysterectomy, Oophorectomy, Other Additional Past Surgical Histo: LUMPECTOMY Smoking Status: Current Every Day Smoker Alcohol Use: None Drug Use: None General Adult EDM: Chief Complaint: SHORTNESS OF BREATH HPI: HPI: 40 yo F PMH breast cancer (in remission), HTN, asthma, tobacco use, and anxiety, presents the ED with her daughter, (patient consents to his/her/their knowledge and involvement in pts' medical care), with multiple complaints including lower abdominal cramping, right-sided headache, cough, nausea, vomiting, loose watery diarrhea and fatigue that started on , stating "I just don't feel good." Has not been vaccinated for Covid and states her daughter had similar symptoms that started a week and a half ago. States her headache, vomiting and abdominal pain are her more concerning sxs. Review of Systems: Review of Systems: Constitutional: Denies fever or chills. [] Eyes: Denies change in visual acuity. [] HENT: Denies nasal congestion or sore throat. [] Respiratory: Denies hemoptysis or increased work of breathing Cardiovascular: Denies chest pain or edema. [] GI: Denies melena or hematochezia : Denies dysuria or vaginal bleeding Musculoskeletal: Denies back pain or joint pain. [] Integument: Denies rash diaphoresis Neurologic: Denies neck pain, focal weakness or sensory changes. [] Endocrine: Denies polyuria or polydipsia. [] Lymphatic: Denies swollen glands. [] Psychiatric: Denies depression or anxiety. [] Heart Score: C/O Chest Pain: No Risk Factors: Risk Factors: DM, Current or recent (<one month) smoker, HTN, HLP, family history of CAD, obesity. Risk Scores: Score 0 - 3: 2.5% MACE over next 6 weeks - Discharge Home Score 4 - 6: 20.3% MACE over next 6 weeks - Admit for Clinical Observation Score 7 - 10: 72.7% MACE over next 6 weeks - Early Invasive Strategies Current Medications: Current Medications Medications (Trade) Dose Ordered Sig/Bernice Start Time Stop Time Status Last Admin Dose Admin Info (CONTRAST GIVEN -- Rx MONITORING) 1 each PRN DAILY PRN 06/01/21 15:15 06/03/21 15:14 Iohexol (Omnipaque 300 Mg/ml) 75 ml 1X ONCE 06/01/21 15:15 06/01/21 15:16 DC Ketorolac Tromethamine (Toradol 15mg Vial) 15 mg 1X ONCE 06/01/21 15:00 06/01/21 15:01 DC Sodium Chloride 1,000 ml @ 1,000 mls/hr 1X ONCE 06/01/21 15:00 06/01/21 15:59 DC Allergies: Allergies: Allergies Coded Allergies Type Severity Reaction Last Updated Verified Fish Containing Products Allergy Intermediate 04/10/21 Yes Penicillins Allergy Intermediate 02/02/17 Yes shrimp Allergy Intermediate 09/11/18 Yes Physical Exam: PE: Constitutional: Flu-appearing, no acute distress, non-toxic appearance. HENT: Normocephalic, atraumatic, Eyes: EOMI, conjunctiva normal, no discharge. Neck: Normal range of motion, supple, Cardiovascular: S1/2 present, regular rhythm Lungs & Thorax: Speaking in full sentences, bilateral equal chest rise, no tachypnea or increased work of breathing Abdomen: soft, no reproducible tenderness, no rigidity or guarding, reports periumbilical pain Skin: Warm, dry, no erythema, no rash. [] Extremities: No tenderness, no cyanosis, Neurologic: Alert and oriented X 3, normal motor function, normal sensory function, no focal deficits noted. [] Psychologic: Affect normal, judgement normal, mood normal. [] Current Patient Data: Labs: Laboratory Tests Test 06/01/21 13:12 06/01/21 14:40 SARS-CoV-2 Antigen (Rapid) Positive (NEGATIVE) *A White Blood Count 3.4 x10^3/uL (4.0-11.0) L Red Blood Count 4.32 x10^6/uL (3.50-5.40) Hemoglobin 14.0 g/dL (12.0-15.5) Hematocrit 39.6 % (36.0-47.0) Mean Corpuscular Volume 92 fL (79-100) Mean Corpuscular Hemoglobin 32 pg (25-35) Mean Corpuscular Hemoglobin Concent 35 g/dL (31-37) Red Cell Distribution Width 12.8 % (11.5-14.5) Platelet Count 169 x10^3/uL (140-400) Neutrophils (%) (Auto) 43 % (31-73) Lymphocytes (%) (Auto) 45 % (24-48) Monocytes (%) (Auto) 11 % (0-9) H Eosinophils (%) (Auto) 1 % (0-3) Basophils (%) (Auto) 1 % (0-3) Neutrophils # (Auto) 1.4 x10^3/uL (1.8-7.7) L Lymphocytes # (Auto) 1.5 x10^3/uL (1.0-4.8) Monocytes # (Auto) 0.4 x10^3/uL (0.0-1.1) Eosinophils # (Auto) 0.0 x10^3/uL (0.0-0.7) Basophils # (Auto) 0.0 x10^3/uL (0.0-0.2) Sodium Level 141 mmol/L (136-145) Potassium Level 4.0 mmol/L (3.5-5.1) Chloride Level 106 mmol/L (98-107) Carbon Dioxide Level 28 mmol/L (21-32) Anion Gap 7 (6-14) Blood Urea Nitrogen 13 mg/dL (7-20) Creatinine 1.0 mg/dL (0.6-1.0) Estimated GFR (Cockcroft-Gault) 61.1 BUN/Creatinine Ratio 13 (6-20) Glucose Level 107 mg/dL (70-99) H Calcium Level 8.4 mg/dL (8.5-10.1) L Total Bilirubin 0.3 mg/dL (0.2-1.0) Aspartate Amino Transferase (AST) 13 U/L (15-37) L Alanine Aminotransferase (ALT) 29 U/L (14-59) Alkaline Phosphatase 90 U/L (46-116) Total Protein 7.0 g/dL (6.4-8.2) Albumin 3.5 g/dL (3.4-5.0) Albumin/Globulin Ratio 1.0 (1.0-1.7) Lipase 82 U/L (73-393) Serum Test, Qualitative Negative (NEG) Laboratory Tests 06/01/21 14:40 Laboratory Tests 06/01/21 14:40 Vital Signs: Vital Signs Date Time Temp Pulse Resp B/P (MAP) Pulse Ox O2 Delivery O2 Flow Rate FiO2 06/01/21 12:45 98.3 93 16 135/81 (99) 97 Room Air 98.3 EKG: EKG: Sinus rhythm 83 bpm, no axis deviation, normal intervals, T wave inversion lead III, no ST elevation or ST depression, no active chest pain Radiology/Procedures: Radiology/Procedures: IMAGING REPORT Signed PATIENT: CATALINA DE LOS SANTOS ACCOUNT: [id number] : 1980 LOCATION: ER AGE: 40 SEX: F EXAM STATUS: REG ER ORD. PHYSICIAN: OFELIA CHING DO REASON: abd pain PROCEDURE: CT ABD PELV W/ IV CONTRST ONLY EXAM: CT Abdomen and Pelvis with IV contrast CLINICAL HISTORY: Abdominal pain COMPARISON: none TECHNIQUE: Helical CT of the abdomen and pelvis was performed following the administration of intravenous contrast. Axial, coronal and sagittal reformatted images were generated. PQRS compliance statement - One or more of the following individualized dose reduction techniques were utilized for this study: 1. Automated exposure control 2. Adjustment of the mA and/or kV according to patient size 3. Use of iterative reconstruction technique FINDINGS: Lower Chest: 1.2 cm nodular opacity in the left lower lobe is new compared to 04/10/2021. Given the relative rapid development this likely represents focal consolidative process or atelectasis however imaging follow-up to resolution is recommended. Abdomen and Pelvis: Focal low-attenuation along the falciform ligament likely focal fatty infiltration. Diffuse hepatic hypoattenuation. Gallbladder, pancreas, spleen and adrenal glands are unremarkable. Symmetric nephrograms. Nonobstructing right lower pole renal calculus. No hydronephrosis. No hydroureter. Bladder is unremarkable. Appendix is normal. Moderate colonic stool content is seen. No small or large bowel dilatation is seen. No abdominal or pelvic ascites. Aorta is normal in caliber. Bones: No aggressive osseous lesion is seen. IMPRESSION: 1. Hepatic hypoattenuation, fatty liver. 2. 1.2 cm nodular opacity in the left lower lobe likely focal consolidative process given the rapid development compared to 04/10/2021. However follow-up CT in 6-12 weeks is recommended to exclude underlying mass. 3. Otherwise no CT findings to account for acute abdominal pain. Electronically signed by: Sandip Agustin MD (06/01/2021 4:01 PM) [id number] DICTATED and SIGNED BY: SANDIP AGUSTIN MD DATE: 06/01/21 [id number] 0 Course & Med Decision Making: Course & Med Decision Making Pertinent Labs and Imaging studies reviewed. (See chart for details) []COVID-19 CRITERIA: The patient was evaluated during the global COVID-19 pandemic, and that diagnosis was suspected/considered upon their initial presentation. Their evaluation, treatment and testing was consistent with current guidelines for patients who present with complaints or symptoms that may be related to COVID-19. Concern for COVID-19 infection in the setting of abdominal pain and vomiting. Patient was treated in the ED with antiemetics and migraine cocktail. CT image with no acute findings to account for abdominal pain but does show a pulmonary nodule. Report was printed and given to patient to take to her primary care physician. Labs unremarkable. Pt reports feeling well to return home. Will prescribe odt zofran. Patient hemodynamically stable with no tachycardia, is tolerating oral intake on reevaluation. Will discharge home with strict ED return precautions were given for difficulties breathing, chest pressure, neurologic symptoms, syncope or hemoptysis. Encouraged urgent outpatient follow- up with PMD for reevaluation. Life-threatening processes were considered but are low suspicion at this time, given history, physical exam and ED workup. Pt was educated on all prescription medications and adverse effects. All patient's questions were answered and pt was stable at time of discharge. Life/limb-threatening differential includes but is not limited to, airway emergency or respiratory distress/ARDS or fatigue or head or neck swelling, toxidrome, sepsis/shock, angioedema, anaphylaxis, congestive heart failure, myocarditis, acute myocardial infarction, dysrhythmias, cardiomyopathy, venous thromboembolism, pulmonary emboli, acute necrotizing hemorrhagic encephalopathy ,cerebral venous thrombosis, meningitis, encephalitis or CVA. I have spoken with the patient and/or caregivers. I explained the patient's condition, diagnoses and treatment plan based on the information available to me at this time. I have answered the patient and/or caregiver's questions and addressed any concerns. The patient and/or caregivers have a good understanding of patient's diagnosis, condition and treatment plan as can be expected at this point. Vital signs have been stable. Patient's condition is stable and appropriate for discharge from the emergency department. Patient will pursue further outpatient evaluation with primary care physician or other designated or consulting physician as outlined in the discharge instructions. The patient and/or caregivers are agreeable to this plan of care and follow-up instructions have been explained in detail. The patient and/or caregivers have received these instructions in written form and have expressed an understanding of the discharge instructions. The patient and/or caregivers are aware that any significant change of condition or worsening of symptoms should prompt immediate return to this or the closest emergency department or call to 911. Rebekah Disclaimer: Dragcassandra Disclaimer: This electronic medical record was generated, in whole or in part, using a voice recognition dictation system. Departure Departure Impression: Primary Impression: COVID-19 Additional Impressions: Abdominal pain Nausea & vomiting Disposition: 01 HOME / SELF CARE / HOMELESS Condition: STABLE Referrals: CYDNEY TONG APRN (PCP) Follow-up in the next week for routine care Follow-up in 6 to [address] of the lung to evalute pulmonary nodule Patient Instructions: Abdominal Migraine Additional Instructions: Return to ED immediately if your oxygen level drops below 90% (purchase a pulse oximetry at a medical supply store), difficulties breathing including rapid breathing or increased work of breathing (skin sucking under ribs), chest pain or stroke-like symptoms (facial droop, speech changes, arm/leg weakness). You have been tested for or diagnosed with COVID-19. It is an infection caused by a new type of coronavirus. COVID-19 will cause cold-like or mild flu symptoms in most. It can cause more severe symptoms like problems breathing in some. There is no treatment for COVID-19. The body will clear the infection over time. Self-care will help to ease discomfort. Steps to Take: Self-Care Rest as needed. Healthy habits may help you feel better. Steps include: Choose healthy foods including fruits and vegetables. Drink water throughout the day. Get plenty of sleep each night. If you smoke, try to quit. It may ease breathing. Avoid alcohol. Keep Others Healthy The virus can spread to others. Droplets are released every time you sneeze or cough. The droplets can get into the mouth, nose, or eyes of people near you and lead to infection. To lower the chances of spreading COVID-19 to others: Stay at home until your doctor has said it is safe to leave. If you tested positive this will mean staying isolated until both of the following are true: At least 7 days have passed since the start of illness. You are free of fever for at least 72 hours without the use of medicine. During this time: - Avoid public areas, events, or transportation. Do not return to work or school until your doctor has said it is safe to do so. - Call ahead if you need to go to a medical center. Let them know you may have COVID-19. It will help them guide you where to go. They may also ask you to wear a facemask when you come to the office. - If you call for emergency medical services, let them know you may have COVID- 19. While at home: - Try to avoid close contact with others. Stay about 6 feet away. - If possible, spend most of your time in a separate room from others. - Use a face mask if you will be in close contact with others such as sharing a room or vehicle. - Have someone wipe down common surfaces in the home. Use household dry cleaner helper every day on areas like doorknobs, counters, or sinks. - Cough or sneeze into a tissue. Throw the tissue away right after use. If a tissue is not available, cough or sneeze into your elbow. - Wash your hands often. Wash them after sneezing or coughing. Use soap and water and wash for at least 20 seconds. Alcohol based hand stitch cleaner can be used if soap and water is not available. - Do not prepare food for others. Avoid sharing personal items like forks, spoons, or toothbrushes. - Avoid close contact with pets while you are sick. There is no evidence of the virus passing to pets. This is a safety step until more is known about this virus. Isolation can be frustrating. Social interaction can help. Keep in touch with friends and family through phone and tech options. You can still interact with others in your home, just keep a safe distance of about 6 feet. Follow-up: Your doctors office will check in with you to see if there are any changes in your health. You may be asked to keep track of symptoms to share with them. They will also let you know when you are clear to be in public again. Problems to Look Out For: Contact your doctor if your recovery is not going as you expect. Get emergency care if you have problems such as: - Trouble breathing - Nonstop chest pain or pressure - Changes in awareness, confusion, or problems waking - Lips or face have bluish color - Worsening of symptoms If you think you have an emergency, call for emergency medical services right aw ay. As taken from [facility] Ondansetron (ONDANSETRON ODT) 4 Mg Tab.rapdis 1 TAB PO PRN Q6-8HRS, #20 TAB Prov: OFELIA CHING DO 06/01/21 OFELIA CHNIG DO Jun 01, 2021 16:10
[2021-06-01] MEDS ORDERED: DEXAMETHASONE SOD PHOS 20 MG/5 ML VIAL. IV ONE (16:30)
[2021-06-01] MEDS ORDERED: PROCHLORPERAZINE 10 MG/2 ML VIAL. IV ONE (16:30)
[2021-06-01] MEDS ORDERED: ONDA4TAB12 PO (16:30)
[2021-06-01] MEDS ORDERED: ONDANSETRON PF 4 MG/2 ML VIAL. IVP ONE (16:30)
--- NOTE | 2021-06-02 05:29 | EKG ---
[facility] [address] [place] [address] Test Date: 2021-06-01 Test Time: 12:58:19 Pat Name: CATALINA DE LOS SANTOS Department: Room: Gender: F [employer]: : 1980 Requested By: OFELIA CHING Order Number: [id number] Reading MD: Kade Astorga MD Measurements Intervals [place] Rate: 83 P: 40 UT: 140 QRS: -5 QRSD: 80 T: 12 QT: 372 QTc: 438 Interpretive Statements SINUS RHYTHM NON-SPECIFIC ST/T CHANGES Electronically Signed On 06-02-2021 9:23:02 POST [employer] by Kade Astorga MD
== END 2021-06-01 17:55 | disposition home or self-care (01) ==
LOC: ER 11:39
DX: U07.1 COVID-19 (principal); R10.30 Lower abdominal pain, unspecified; R11.2 Nausea with vomiting, unspecified; Z72.0 Tobacco use; I10 Essential (primary) hypertension; J45.909 Unspecified asthma, uncomplicated; G40.909 Epilepsy, unspecified, not intractable, without status epilepticus; Z90.89 Acquired absence of other organs; Z90.722 Acquired absence of ovaries, bilateral; Z88.0 Allergy status to penicillin; Z91.013 Allergy to seafood
CPT/HCPCS: 36415; 74177; 80053; 83690; 84703; 85025; 87426; 96361; 96374; 96375; 99285; J0780; J1100; J1885; J2405; J7030; 93005